=== PATIENT | female | born 1940 | race American Indian/Alaskan Native ===

== ENCOUNTER 2017-07-02 14:04 | Inpatient (IN) | payer MEDICARE, MEDICAID ==
[2017-07-02 14:14] VITALS: BMI 36.4
--- NOTE | 2017-07-02 15:10 | ED PDOC ---
Arrival/HPI - General Chief Complaint: Trauma Time Seen by Provider: 07/02/17 14:36 Historian: Patient, Family - History of Present Illness Narrative History of Present Illness (Text): 07/02/17 15:06 76yr old female with hx of htn, chf, thyroid issues present today with back and leg pain s/p fall. pt unsure of what happened. family states patient went into the bathroom and was found on the floor. pt c/o back pain and right leg pain. denies cp or sob. denies abdominal pain. no n/v/d. family states patient has been acting appropriate. pt denies numbness or weakness in the lower legs. pt denies dizziness. denies headache. pt unsure if she hit her head. unsure of LOC. family states when they found patient in the bathroom she was leaning with her back against the bathtub and right leg under her body. Past Medical History - Provider Review Nursing Documentation Reviewed: Yes - Travel History Have you recently traveled outside [place] w/in the past 3 mons?: No - Cardiac Hx Cardiac Disorders: Yes Hx Congestive Heart Failure: Yes Hx Hypertension: Yes - Pulmonary Hx Respiratory Disorders: No - Neurological Hx Neurological Disorder: No - HEENT Hx HEENT Disorder: No - Renal Hx Renal Disorder: No - Endocrine/Metabolic Hx Endocrine Disorders: Yes Other/Comment: THYROID DISEASE - Hematological/Oncological Hx Blood Disorders: No - Integumentary Hx Dermatological Disorder: No - Musculoskeletal/Rheumatological Hx Musculoskeletal Disorders: No - Gastrointestinal Hx Gastrointestinal Disorders: No - Genitourinary/Gynecological Hx Genitourinary Disorders: No - Psychiatric Hx Psychophysiologic Disorder: No Hx Substance Use: No Family/Social History - Physician Review Nursing Documentation Reviewed: Yes Family/Social History: Unknown Family HX Smoking Status: Never Smoked Hx Alcohol Use: No Hx Substance Use: No Allergies/Home Meds Allergies/Adverse Reactions: Allergies No Known Allergies Allergy (Verified 07/02/17 14:27) Home Medications: Home Meds Medication Instructions Recorded Confirmed Folic Acid 1 mg PO DAILY 07/02/17 07/02/17 Methotrexate 3 tab PO Q7D 07/02/17 07/02/17 Potassium Chloride 20 meq PO DAILY 07/02/17 07/02/17 Pravastatin Sodium [Pravachol] 20 mg PO DAILY 07/02/17 07/02/17 Telmisartan/Hydrochlorothiazid 1 tab PO DAILY 07/02/17 07/02/17 [Micardis Hct 80-25 mg Tablet] Review of Systems - Review of Systems Constitutional: absent: Fevers Respiratory: absent: SOB, Cough Cardiovascular: absent: Chest Pain, Palpitations Gastrointestinal: absent: Abdominal Pain, Nausea, Vomiting Genitourinary Female: absent: Dysuria Musculoskeletal: Arthralgias, Back Pain. absent: Neck Pain Skin: absent: Rash Neurological: absent: Headache, Dizziness Physical Exam Vital Signs Reviewed: Yes Vital Signs Temp Pulse Resp BP Pulse Ox 07/02/17 19:54 97 H 18 96/50 L 95 07/02/17 16:07 102 H 18 118/65 98 07/02/17 14:14 97.6 F 125 H 18 122/66 98 Temperature: Afebrile Blood Pressure: Normal Pulse: Tachycardic Respiratory Rate: Normal Appearance: Positive for: Well-Appearing, Non-Toxic, Comfortable Pain Distress: None Mental Status: Positive for: Alert and Oriented X 3 - Systems Exam Head: Present: Atraumatic Extroacular Muscles: Present: EOMI Conjunctiva: Present: Normal Ears: Present: Normal Mouth: Present: Moist Mucous Membranes Neck: Present: Normal Range of Motion Respiratory/Chest: Present: Clear to Auscultation, Good Air Exchange. No: Respiratory Distress, Accessory Muscle Use Cardiovascular: Present: Regular Rate and Rhythm, Normal S1, S2. No: Murmurs Abdomen: Present: Normal Bowel Sounds. No: Tenderness, Distention, Peritoneal Signs, Rebound, Guarding Back: Present: Normal Inspection. No: CVA Tenderness, Midline Tenderness, Paraspinal Tenderness Upper Extremity: Present: Normal Inspection, Normal ROM Lower Extremity: Present: Normal Inspection, Normal ROM, Capillary Refill < 2 s , Other (+ bilateral lower leg edema. no calf tenderness; pelvis stable; no hip tenderness; minimal ttp over right knee; full rom of knee; sensation intact. ) Neurological: Present: Speech Normal, Normal Sensory Function Skin: Present: Warm, Dry Psychiatric: Present: Alert, Oriented x 3 Medical Decision Making ED Course and Treatment: 07/02/17 15:11 76yr old female with unwitnessed fall. c/o leg pain and back pain. pt tachycardic ekg shows; sinus tachycardia at 115bmp; no st elevations, [id number] pt given tylenol for pain. cxr; no acute infiltrate cbc: wbc; 14.8 cmp:bun; 25 cr; 1.1 trop: wnl bnp: wnl head ct; FINDINGS: HEMORRHAGE: No intracranial hemorrhage. BRAIN: No mass effect or edema. Minimal age appropriate cerebral atrophy. No evidence of acute infarct. VENTRICLES: Unremarkable. No hydrocephalus. CALVARIUM: Unremarkable. PARANASAL SINUSES: Unremarkable as visualized. No significant inflammatory changes. MASTOID AIR CELLS: Unremarkable as visualized. No inflammatory changes. OTHER FINDINGS: None. IMPRESSION: Normal CT of the Head. No intracranial mass, hemorrhage or evidence of acute infarct chest/abd/pelvis CT: FINDINGS: CT CHEST WITHOUT CONTRAST: LUNGS: Clear. No nodule, mass or consolidation. MEDIASTINUM: Enlarged multinodular left lobe of thyroid. Correlate with thyroid ultrasound examination. Normal heart size. No evidence thoracic aortic aneurysm. No dilatation of main pulmonary artery. LYMPH NODES: Unremarkable. PLEURA: Unremarkable. No pneumothorax. No pleural fluid. BONES: Unremarkable. OTHER FINDINGS: None. CT ABDOMEN AND PELVIS: LIVER: Unremarkable. No gross lesion or ductal dilatation. GALLBLADDER AND BILE DUCTS: Status post cholecystectomy. PANCREAS: Evaluation limited by the absence of intravenous contrast. There is an exophytic rounded low-density mass arising from the pancreatic tail measuring approximately 1.5 cm in diameter. There is a suspected 2nd low-density mass in the body of the pancreas measuring approximately 2.3 cm in greatest dimension. Recommend evaluation with contrast-enhanced computed tomography utilizing pancreatic protocol. No pancreatic ductal dilatation. No evidence of pancreatitis. SPLEEN: Unremarkable. ADRENALS: 2.7 cm left adrenal mass measuring 30 E 7 Hounsfield units in attenuation. Nonspecific but statistically most likely represents an adrenal adenoma given its size. KIDNEYS AND URETERS: Exophytic right lower pole renal cortical cyst, 1.8 cm. Left lower pole renal cortical cyst, 2.5 cm. No renal calculus or hydronephrosis. VASCULATURE: Unremarkable. No aortic aneurysm. BOWEL: Unremarkable. No obstruction. No gross mural thickening. APPENDIX: Normal appendix. PERITONEUM: Unremarkable. No free fluid. No free air. LYMPH NODES: Unremarkable. No enlarged lymph nodes. BLADDER: Unremarkable. REPRODUCTIVE: Calcified fibroid in the uterine fundus, 5.6 cm diameter. BONES: No acute fracture. OTHER FINDINGS: None. IMPRESSION: No acute abnormality. Multinodular goiter. Recommend correlation with thyroid ultrasound examination on a nonemergent basis. Two low-density pancreatic masses , possibly cystic. 1.5 cm and 2.3 cm in respective greatest dimension. Recommend further evaluation on a nonemergent basis with multiphasic contrast- enhanced CT. Bilateral renal cortical cysts. 2.7 cm left adrenal mass, likely adrenal adenoma. Calcified uterine fibroid. 07/02/17 16:32 pt was seen and evaluated by dr. branch; lactate 4.6; pt with hx of CHF, takes 80mg of laxis at home; unsure of patient EF. pt can not tolerate large amount of IV fluids. pt given gentle hydration; 07/02/17 19:59 pt with + flu test; tamiflu given; pt reassessment; pts HR is improving; pt bp dropped; BP 88/56, case discussed with dr. mccallum who saw patient at bedside; pt given 250cc bolus of NS; pt bP is 96/50. pt accepted to ICU; impression; syncope, leukocytosis, influenza, sepsis, back pain, admit to ICU - Lab Interpretations Lab Results: 07/02/17 15:15 07/02/17 15:15 Lab Results 07/02/17 18:54: pO2 143 H, VBG pH 7.46 H, VBG pCO2 41.0, VBG HCO3 29.2 H, VBG Total CO2 30.5 H, VBG O2 Sat (Calc) 100.0 H, VBG Base Excess 4.9 H, VBG Potassium 3.4 L, Sodium 145.0, Chloride 108.0 H, Glucose 178 H, Lactate 4.1 H*, FiO2 21.0, Venous Blood Potassium 3.4 L 07/02/17 18:54: Influenza Typ A,B (EIA) Pos for influenza a H 07/02/17 16:11: Urine Color Yellow, Urine Appearance Clear, Urine pH 6.0, Ur Specific [place] 1.015, Urine Protein Trace H, Urine Glucose (UA) Negative, Urine Ketones Negative, Urine Blood Trace-lysed H, Urine Nitrate Negative, Urine Bilirubin Negative, Urine Urobilinogen 0.2, Ur Leukocyte Esterase Negative , Urine RBC 0 - 2, Urine WBC 0 - 2, Ur Epithelial Cells 6 - 8 07/02/17 15:15: PT 11.6, INR 1.02, APTT 18.9 L 07/02/17 15:15: pO2 36, VBG pH 7.37, VBG pCO2 52.0, VBG HCO3 30.1 H, VBG Total CO2 31.7 H, VBG O2 Sat (Calc) 75.3 H, VBG Base Excess 3.6 H, VBG Potassium 3.4 L , Sodium 146.0, Chloride 107.0, Glucose 173 H, Lactate 4.6 H*, FiO2 21.0, Venous Blood Potassium 3.4 L 07/02/17 15:15: WBC 14.8 H, RBC 4.67, Hgb 13.9, Hct 43.2, MCV 92.5, MCH 29.8, MCHC 32.2, RDW 14.6 H, Plt Count 189, MPV 10.2, Gran % 95.2 H, Lymph % (Auto) 3.1 L, Gonzales % (Auto) 1.5, Eos % (Auto) 0.1 L, Baso % (Auto) 0.1, Gran # 14.10 H , Lymph # (Auto) 0.5 L, Gonzales # (Auto) 0.2, Eos # (Auto) 0.0, Baso # (Auto) 0.01 , Neutrophils % (Manual) 89 H, Band Neutrophils % 3 H, Lymphocytes % (Manual) 5 L, Monocytes % (Manual) 3 07/02/17 15:15: Sodium 148, Chloride 105, Potassium 3.6, Carbon Dioxide 30, Anion Gap 17, BUN 25 H, Creatinine 1.0, Est GFR ( Amer) > 60, Est GFR ( Non-Af Amer) 54, Random Glucose 169 H, Calcium 9.8, Total Bilirubin 0.7, AST 47 H, ALT 38, Alkaline Phosphatase 225 H, Lactate Dehydrogenase 798 H, Total Creatine Kinase 43, Troponin I < 0.01, NT-Pro-B Natriuret Pep 264, Total Protein 7.5, Albumin 4.0, Globulin 3.6, Albumin/Globulin Ratio 1.1 - RAD Interpretation Radiology Orders: 07/02/17 14:36 CHEST PORTABLE [RAD] Stat 07/02/17 14:45 HEAD W/O CONTRAST [CT] Stat 07/02/17 14:49 PELVIS ONE VIEW [RAD] Stat 07/02/17 14:50 KNEE W PATELLA RIGHT 3 VIEW [RAD] Stat 07/02/17 16:20 CHEST,ABDOMEN, PELVIS W/O CONT [CT] Stat - Medication Orders Current Medication Orders: Sodium Chloride (Sodium Chloride 0.9%) 500 mls @ 100 mls/hr IV .Q5H TREVER Last Admin: 07/02/17 16:00 Dose: 100 mls/hr eMAR Start Stop Document 07/02/17 16:00 DM (Rec: 07/02/17 16:02 DM [id number]) Intravenous Solution Start Date 07/02/17 Start Time 16:00 Ceftriaxone Sodium (Rocephin 1 Gram Ivpb) 1 gm in 100 mls @ 200 mls/hr IVPB STAT STA PRN Reason: Protocol Stop: 07/02/17 20:00 Last Admin: 07/02/17 19:45 Dose: 200 mls/hr eMAR Start Stop Document 07/02/17 19:45 AD (Rec: 07/02/17 19:45 AD [id number]) Intravenous Solution Start Date 07/02/17 Start Time 19:35 Azithromycin (Zithromax 500mg In Ns) 500 mg in 250 mls @ 167 mls/hr IVPB STAT STA PRN Reason: Protocol Stop: 07/02/17 21:00 Sodium Chloride (Sodium Chloride 0.9%) 250 mls @ 999 mls/hr IV .Q16M STA Stop: 07/02/17 20:03 Last Admin: 07/02/17 19:53 Dose: 999 mls/hr eMAR Start Stop Document 07/02/17 19:53 AD (Rec: 07/02/17 19:53 AD [id number]) Intravenous Solution Start Date 07/02/17 Start Time 19:53 Discontinued Medications Acetaminophen (Tylenol 325mg Tab) 650 mg PO STAT STA Stop: 07/02/17 15:03 Last Admin: 07/02/17 15:25 Dose: 650 mg MAR Pain/Vitals Document 07/02/17 15:25 DM (Rec: 07/02/17 15:25 DM [id number]) Pain Reassessment Is This A Pain ReAssessment? Yes Presence of Pain Presence of Pain Yes Pain Scale Used Pain Scale Used Numeric Location Upper or Lower Lower Pain Location Body Site Back Intensity 6 Scale Used Numeric Oseltamivir Phosphate (Tamiflu Cap) 75 mg PO STAT STA PRN Reason: Protocol Stop: 07/02/17 19:32 Last Admin: 07/02/17 19:45 Dose: 75 mg Disposition/Present on Arrival - Present on Arrival Any Indicators Present on Arrival: No History of DVT/PE: No History of Uncontrolled Diabetes: No Urinary Catheter: No History of Decub. Ulcer: No History Surgical Site Infection Following: None - Disposition Have Diagnosis and Disposition been Completed?: Yes Diagnosis: Sepsis, Influenza, Hypotension, Syncope, Back pain, Leg pain Disposition: HOSPITALIZED Disposition Time: 20:08 Patient Plan: Admission, ICU Patient Problems: Current Active Problems Problem Status Onset Hypotension Acute Influenza Acute Sepsis Acute Condition: CRITICAL Discharge Instructions (ExitCare): Sepsis (ED), Syncope (ED) Referrals: Brett Esquivel MD [Primary Care Provider] - Follow up with primary Forms: [employer] ([place])
[2017-07-02 15:28] LABS: BASO # 0.01 K/mm3 (0.0-2.0); BASO % 0.1 % (0.0-3.0); EOS % 0.1 % (1.5-5.0); GRAN % 95.2 % (50.0-68.0); HEMOGLOBIN 13.9 g/dL (12.0-16.0); LYMPH # 0.5 (1.2-3.4); LYMPH % 3.1 % (22.0-35.0); MEAN CELL VOLUME 92.5 fl (80.0-105.0); MEAN CORPUSCULAR HEMOGLOBIN 29.8 pg (25.0-35.0); MEAN CORPUSCULAR HGB CONC 32.2 g/dl (31.0-37.0); MEAN PLATELET VOLUME 10.2 fl (7.0-11.0); MONO # 0.2 (0.1-0.6); MONO % 1.5 % (1.0-6.0); PLATELET COUNT 189 10^3/uL (120.0-450.0); RBC 4.67 10^6/uL (3.5-6.1); RED CELL DISTRIBUTION WIDTH 14.6 % (11.5-14.5); WHITE BLOOD COUNT 14.8 10^3/ul (4.5-11.0)
[2017-07-02 15:29] LABS: VENOUS BLOOD GAS BASE EXCESS 3.6 mmol/L (0.0-2.0); VENOUS BLOOD GAS PO2 36 mm/Hg (30-55); VENOUS BLOOD PH 7.37 (7.32-7.43)
[2017-07-02 15:40] LABS: ALB/GLOB RATIO 1.1 (1.1-1.8); ALT/SGPT 38 U/L (7-56); AST/SGOT 47 U/L (14-36); BLOOD UREA NITROGEN 25 mg/dL (7-21); CALCIUM 9.8 mg/dL (8.4-10.5); GFR AFRICAN-AMERICAN > 60; GFR NON-AFRICAN AMERICAN 54
[2017-07-02 15:41] LABS: INR 1.02 (0.93-1.08); PARTIAL THROMBOPLASTIN TIME 18.9 Seconds (25.1-36.5); PROTHROMBIN TIME 11.6 SECONDS (9.4-12.5)
[2017-07-02] MEDS ORDERED: Sodium Chloride 0.9% 500 ML IV SCH (15:45)
[2017-07-02 15:51] LABS: B-TYPE NATRIURETIC PEPTIDE 264 pg/mL (0-450); TROPONIN I < 0.01 ng/mL
[2017-07-02 16:02] LABS: BAND 3 % (0-2); LYMPHOCYTE 5 % (22.0-35.0); MONOCYTE 3 % (1.0-6.0); NEUTROPHIL 89 % (50.0-70.0)
--- NOTE | 2017-07-02 16:04 | RAD ---
HISTORY: syncope/fall COMPARISON: No prior. FINDINGS: LUNGS: No active pulmonary disease. PLEURA: No significant pleural effusion identified, no pneumothorax apparent. CARDIOVASCULAR: Normal. OSSEOUS STRUCTURES: No significant abnormalities. VISUALIZED UPPER ABDOMEN: Normal. OTHER FINDINGS: None. IMPRESSION: No active disease.
[2017-07-02 16:17] LABS: URINE BILIRUBIN NEGATIVE (NEGATIVE); URINE BLOOD TRACE-LYSED (NEGATIVE); URINE GLUCOSE (UA) NEGATIVE (NEGATIVE); URINE LEUKOCYTE ESTERASE NEGATIVE Leu/uL (NEGATIVE); URINE PROTEIN TRACE mg/dL (<30 mg/dL); URINE UROBILINOGEN 0.2 E.U./dL (<1 E.U./dL)
[2017-07-02 16:42] LABS: URINE APPEARANCE CLEAR (CLEAR); URINE COLOR YELLOW (YELLOW)
[2017-07-02 16:50] LABS: URINE RBC 0 - 2 /hpf (0-2); URINE WBC 0 - 2 /hpf (0-6)
--- NOTE | 2017-07-02 17:14 | CT ---
PROCEDURE: CT HEAD WITHOUT CONTRAST. HISTORY: fall/syncope COMPARISON: None available. TECHNIQUE: Axial computed tomography images were obtained through the head/brain without intravenous contrast. Radiation dose: Total exam DLP = 1736.07 mGy-cm. This CT exam was performed using one or more of the following dose reduction techniques: Automated exposure control, adjustment of the mA and/or kV according to patient size, and/or use of iterative reconstruction technique. FINDINGS: HEMORRHAGE: No intracranial hemorrhage. BRAIN: No mass effect or edema. Minimal age appropriate cerebral atrophy. No evidence of acute infarct. VENTRICLES: Unremarkable. No hydrocephalus. CALVARIUM: Unremarkable. PARANASAL SINUSES: Unremarkable as visualized. No significant inflammatory changes. MASTOID AIR CELLS: Unremarkable as visualized. No inflammatory changes. OTHER FINDINGS: None. IMPRESSION: Normal CT of the Head. No intracranial mass, hemorrhage or evidence of acute infarct
--- NOTE | 2017-07-02 17:15 | CARD ---
APPROVED REPORT EKG Measurement Heart [id number] <Conclusion> Sinus tachycardia Clockwise Rotation.
--- NOTE | 2017-07-02 18:33 | CT ---
PROCEDURE: CT Chest, Abdomen and Pelvis without intravenous contrast HISTORY: fall/syncope/upper and lower back pain COMPARISON: None. TECHNIQUE: Radiation dose: Total exam DLP = 1543.44 mGy-cm. This CT exam was performed using one or more of the following dose reduction techniques: Automated exposure control, adjustment of the mA and/or kV according to patient size, and/or use of iterative reconstruction technique. FINDINGS: CT CHEST WITHOUT CONTRAST: LUNGS: Clear. No nodule, mass or consolidation. MEDIASTINUM: Enlarged multinodular left lobe of thyroid. Correlate with thyroid ultrasound examination. Normal heart size. No evidence thoracic aortic aneurysm. No dilatation of main pulmonary artery. LYMPH NODES: Unremarkable. PLEURA: Unremarkable. No pneumothorax. No pleural fluid. BONES: Unremarkable. OTHER FINDINGS: None. CT ABDOMEN AND PELVIS: LIVER: Unremarkable. No gross lesion or ductal dilatation. GALLBLADDER AND BILE DUCTS: Status post cholecystectomy. PANCREAS: Evaluation limited by the absence of intravenous contrast. There is an exophytic rounded low-density mass arising from the pancreatic tail measuring approximately 1.5 cm in diameter. There is a suspected 2nd low-density mass in the body of the pancreas measuring approximately 2.3 cm in greatest dimension. Recommend evaluation with contrast-enhanced computed tomography utilizing pancreatic protocol. No pancreatic ductal dilatation. No evidence of pancreatitis. SPLEEN: Unremarkable. ADRENALS: 2.7 cm left adrenal mass measuring 30 E 7 Hounsfield units in attenuation. Nonspecific but statistically most likely represents an adrenal adenoma given its size. KIDNEYS AND URETERS: Exophytic right lower pole renal cortical cyst, 1.8 cm. Left lower pole renal cortical cyst, 2.5 cm. No renal calculus or hydronephrosis. VASCULATURE: Unremarkable. No aortic aneurysm. BOWEL: Unremarkable. No obstruction. No gross mural thickening. APPENDIX: Normal appendix. PERITONEUM: Unremarkable. No free fluid. No free air. LYMPH NODES: Unremarkable. No enlarged lymph nodes. BLADDER: Unremarkable. REPRODUCTIVE: Calcified fibroid in the uterine fundus, 5.6 cm diameter. BONES: No acute fracture. OTHER FINDINGS: None. IMPRESSION: No acute abnormality. Multinodular goiter. Recommend correlation with thyroid ultrasound examination on a nonemergent basis. Two low-density pancreatic masses, possibly cystic. 1.5 cm and 2.3 cm in respective greatest dimension. Recommend further evaluation on a nonemergent basis with multiphasic contrast-enhanced CT. Bilateral renal cortical cysts. 2.7 cm left adrenal mass, likely adrenal adenoma. Calcified uterine fibroid.
[2017-07-02 19:04] LABS: VENOUS BLOOD GAS BASE EXCESS 4.9 mmol/L (0.0-2.0); VENOUS BLOOD GAS PO2 143 mm/Hg (30-55); VENOUS BLOOD PH 7.46 (7.32-7.43)
--- NOTE | 2017-07-02 19:10 | RAD ---
PROCEDURE: Radiographs of the pelvis. HISTORY: fall COMPARISON: None. FINDINGS: BONES: Pelvic Bones: No definitive displaced fracture of the pelvic ring is appreciated however the pelvis is obscured by overlying bowel at the upper iliac bones and a low large calcified lesion at the left paracentral pelvic soft tissues likely representing a calcified fibroid obscures the inferior left sacrum. No definite displaced fracture is appreciated and the pubic symphysis appears intact. Hips: No definitive subluxation or dislocation. JOINTS: Sacroiliac Joints: Advanced degenerative changes seen at the right greater than left sacroiliac joints Pubic Symphysis: Moderate to severe degenerative changes seen the bilateral hip joints symmetrically. OTHER FINDINGS: Incidental note is made of prominent fecal material at the right hemicolon and some dilated small-bowel loops with left lower quadrant. Clinically correlate for potential ileus or small bowel obstructive process. IMPRESSION: No definitive fractures appreciated displaced however there advanced degenerative change seen the bilateral sacroiliac and hip joints. Bowel obscures upper sacral ring with likely calcified fibroid obscuring the left sacrum inferiorly. Incidentally noted are dilated loops of small bowel in the left flank/lower quadrant. Clinically correlate for potential ileus with bowel obstruction less likely but not completely excluded. Prominent retained fecal material right hemicolon.
--- NOTE | 2017-07-02 19:11 | RAD ---
PROCEDURE: Right Knee Radiographs. HISTORY: knee pain COMPARISON: None. FINDINGS: BONES: Extensive osteopenia suggests likely advanced osteoporosis. No displaced fracture identified. No destructive bony lesion evident. JOINTS: Degenerative joint space narrowing, cortical sclerosis and osteophyte formation are identified at the patellofemoral, medial and lateral femorotibial compartments compatible degenerative joint disease. JOINT EFFUSION: None. OTHER FINDINGS: None. IMPRESSION: No acute displaced fracture. No dislocation. Advanced osteopenia suggests osteoporosis. Moderate to severe degenerative joint disease, tricompartmental.
[2017-07-02] MEDS ORDERED: cefTRIAXone 1 gm 1 GM/100 ML BAG IVPB STA (19:31)
[2017-07-02] MEDS ORDERED: Azithromycin 500MG/NS 250ml 500 MG/250 ML BAG IVPB STA (19:31)
[2017-07-02] MEDS ORDERED: Sodium Chloride 0.9% 250 ML IV STA (19:48)
[2017-07-02] MEDS ORDERED: Sodium Chloride 0.9% 1,000 ML IV SCH (20:45)
[2017-07-02] MEDS ORDERED: Sodium Chloride 0.9% 250 ML IV SCH (20:45)
--- NOTE | 2017-07-02 22:27 | CP.PCM.HP ---
History of Present Illness - History of Present Illness History of Present Illness: PGY-2 H&P for hospitalist service 76 yo female with PMH of HTN, CHF presents to ED after fall with leg and back pain. Patient is a poor historian and does not recall how she fell. Patient states that she was in the bathroom and then woke up on the floor. She is unsure if she had any trauma to her head. Family at bedside states she was found in the bathroom and on the floor. Patient is complaining of back pain and leg pain. She denies chest pain or sob, headache, dizziness, vision changes, abdominal pain, n/v. Family states patient has been acting appropriate. Patient denies any recent illnesses. She denies any previous falls or loss of consciousness. PMH: CHF, HTN, possible dementia PSH: hernia repair social history: deneis smoking, alcohol use, illicit drug use, lives with daughter allergy: NKDA home meds: reviewed and updated Present on Admission - Present on Admission Any Indicators Present on Admission: No Review of Systems - Review of Systems All systems: reviewed and no additional remarkable complaints except - Constitutional Constitutional: absent: Chills, Fever - EENT Eyes: absent: Blurred Vision, Change in Vision Nose/Mouth/Throat: absent: Nasal Congestion, Nasal Discharge, Dry Mouth, Sore Throat - Cardiovascular Cardiovascular: Syncope. absent: Chest Pain, Diaphoresis, Dyspnea, Lightheadedness, Palpitations - Respiratory Respiratory: absent: Cough, Dyspnea, Hemoptysis - Gastrointestinal Gastrointestinal: absent: Abdominal Pain, Constipation, Diarrhea, Nausea, Vomiting - Genitourinary Genitourinary: absent: Difficulty Urinating, Dysuria, Flank Pain, Hematuria - Musculoskeletal Musculoskeletal: Arthralgias, Back Pain, Myalgias. absent: Numbness - Integumentary Integumentary: absent: Pruritus, Rash, Skin Ulcer, Swelling, Wounds - Neurological Neurological: Syncope. absent: Confusion, Dizziness, Weakness - Hematologic/Lymphatic Hematologic: absent: Easy Bleeding, Easy Bruising Past Patient History - Past Social History Smoking Status: Never Smoked - CARDIAC Hx Cardiac Disorders: Yes Hx Congestive Heart Failure: Yes Hx Hypertension: Yes - PULMONARY Hx Respiratory Disorders: No - NEUROLOGICAL Hx Neurological Disorder: No - HEENT Hx HEENT Problems: No - RENAL Hx Chronic Kidney Disease: No - ENDOCRINE/METABOLIC Hx Endocrine Disorders: Yes Other/Comment: THYROID DISEASE - HEMATOLOGICAL/ONCOLOGICAL Hx Blood Disorders: No - INTEGUMENTARY Hx Dermatological Problems: No - MUSCULOSKELETAL/RHEUMATOLOGICAL Hx Musculoskeletal Disorders: No - GASTROINTESTINAL Hx Gastrointestinal Disorders: No - GENITOURINARY/GYNECOLOGICAL Hx Genitourinary Disorders: No - PSYCHIATRIC Hx Psychophysiologic Disorder: No Hx Substance Use: No - SURGICAL HISTORY Hx Surgeries: No Meds Allergies/Adverse Reactions: Allergies Allergy/AdvReac Type Severity Reaction Status Date / Time No Known Allergies Allergy Verified 07/02/17 14:27 Physical Exam - Constitutional Appears: Well, No Acute Distress - Head Exam Head Exam: ATRAUMATIC, NORMAL INSPECTION, NORMOCEPHALIC - Eye Exam Eye Exam: EOMI - ENT Exam ENT Exam: Mucous Membranes Moist - Respiratory Exam Respiratory Exam: Clear to Auscultation Bilateral, NORMAL BREATHING PATTERN. absent: Rales, Rhonchi, Wheezes, Respiratory Distress - Cardiovascular Exam Cardiovascular Exam: REGULAR RHYTHM, +S1, +S2. absent: Tachycardia, Systolic Murmur - GI/Abdominal Exam GI & Abdominal Exam: Normal Bowel Sounds, Soft. absent: Distended, Firm, Guarding, Tenderness - Extremities Exam Extremities exam: Positive for: normal inspection. Negative for: pedal edema, tenderness - Neurological Exam Neurological exam: Alert, Oriented x3 - Skin Skin Exam: Dry, Intact, Normal Color, Warm Results - Vital Signs Recent Vital Signs: Last Vital Signs Temp 97.6 F 07/02/17 14:14 Pulse 92 H 07/02/17 21:29 Resp 18 07/02/17 21:29 BP 106/57 L 07/02/17 21:29 Pulse Ox 95 07/02/17 21:29 - Labs Result Diagrams: 07/03/17 06:20 07/03/17 06:20 Labs: Laboratory Results - last 24 hr 07/02/17 07/02/17 07/02/17 15:15 15:15 15:15 WBC 14.8 H RBC 4.67 Hgb 13.9 Hct 43.2 MCV 92.5 MCH 29.8 MCHC 32.2 RDW 14.6 H Plt Count 189 MPV 10.2 Gran % 95.2 H Lymph % (Auto) 3.1 L [place] % (Auto) 1.5 Eos % (Auto) 0.1 L Baso % (Auto) 0.1 Gran # 14.10 H Lymph # (Auto) 0.5 L [place] # (Auto) 0.2 Eos # (Auto) 0.0 Baso # (Auto) 0.01 Neutrophils % (Manual) 89 H Band Neutrophils % 3 H Lymphocytes % (Manual) 5 L Monocytes % (Manual) 3 PT INR APTT pO2 36 VBG pH 7.37 VBG pCO2 52.0 VBG HCO3 30.1 H VBG Total CO2 31.7 H VBG O2 Sat (Calc) 75.3 H VBG Base Excess 3.6 H VBG Potassium 3.4 L Sodium 148 146.0 Chloride 105 107.0 Glucose 173 H Lactate 4.6 H* FiO2 21.0 Potassium 3.6 Carbon Dioxide 30 Anion Gap 17 BUN 25 H Creatinine 1.0 Est GFR ( Amer) > 60 Est GFR (Non-Af Amer) 54 Random Glucose 169 H Calcium 9.8 Total Bilirubin 0.7 AST 47 H ALT 38 Alkaline Phosphatase 225 H Lactate Dehydrogenase 798 H Total Creatine Kinase 43 Troponin I < 0.01 NT-Pro-B Natriuret Pep 264 Total Protein 7.5 Albumin 4.0 Globulin 3.6 Albumin/Globulin Ratio 1.1 Venous Blood Potassium 3.4 L Urine Color Urine Appearance Urine pH Ur Specific Deal Urine Protein Urine Glucose (UA) Urine Ketones Urine Blood Urine Nitrate Urine Bilirubin Urine Urobilinogen Ur Leukocyte Esterase Urine RBC Urine WBC Ur Epithelial Cells Influenza Typ A,B (EIA) 07/02/17 07/02/17 07/02/17 15:15 16:11 18:54 WBC RBC Hgb Hct MCV MCH MCHC RDW Plt Count MPV Gran % Lymph % (Auto) [place] % (Auto) Eos % (Auto) Baso % (Auto) Gran # Lymph # (Auto) [place] # (Auto) Eos # (Auto) Baso # (Auto) Neutrophils % (Manual) Band Neutrophils % Lymphocytes % (Manual) Monocytes % (Manual) PT 11.6 INR 1.02 APTT 18.9 L pO2 VBG pH VBG pCO2 VBG HCO3 VBG Total CO2 VBG O2 Sat (Calc) VBG Base Excess VBG Potassium Sodium Chloride Glucose Lactate FiO2 Potassium Carbon Dioxide Anion Gap BUN Creatinine Est GFR ( Amer) Est GFR (Non-Af Amer) Random Glucose Calcium Total Bilirubin AST ALT Alkaline Phosphatase Lactate Dehydrogenase Total Creatine Kinase Troponin I NT-Pro-B Natriuret Pep Total Protein Albumin Globulin Albumin/Globulin Ratio Venous Blood Potassium Urine Color Yellow Urine Appearance Clear Urine pH 6.0 Ur Specific Deal 1.015 Urine Protein Trace H Urine Glucose (UA) Negative Urine Ketones Negative Urine Blood Trace-lysed H Urine Nitrate Negative Urine Bilirubin Negative Urine Urobilinogen 0.2 Ur Leukocyte Esterase Negative Urine RBC 0 - 2 Urine WBC 0 - 2 Ur Epithelial Cells 6 - 8 Influenza Typ A,B (EIA) Pos for influenza a H 07/02/17 18:54 WBC RBC Hgb Hct MCV MCH MCHC RDW Plt Count MPV Gran % Lymph % (Auto) [place] % (Auto) Eos % (Auto) Baso % (Auto) Gran # Lymph # (Auto) [place] # (Auto) Eos # (Auto) Baso # (Auto) Neutrophils % (Manual) Band Neutrophils % Lymphocytes % (Manual) Monocytes % (Manual) PT INR APTT pO2 143 H VBG pH 7.46 H VBG pCO2 41.0 VBG HCO3 29.2 H VBG Total CO2 30.5 H VBG O2 Sat (Calc) 100.0 H VBG Base Excess 4.9 H VBG Potassium 3.4 L Sodium 145.0 Chloride 108.0 H Glucose 178 H Lactate 4.1 H* FiO2 21.0 Potassium Carbon Dioxide Anion Gap BUN Creatinine Est GFR ( Amer) Est GFR (Non-Af Amer) Random Glucose Calcium Total Bilirubin AST ALT Alkaline Phosphatase Lactate Dehydrogenase Total Creatine Kinase Troponin I NT-Pro-B Natriuret Pep Total Protein Albumin Globulin Albumin/Globulin Ratio Venous Blood Potassium 3.4 L Urine Color Urine Appearance Urine pH Ur Specific Deal Urine Protein Urine Glucose (UA) Urine Ketones Urine Blood Urine Nitrate Urine Bilirubin Urine Urobilinogen Ur Leukocyte Esterase Urine RBC Urine WBC Ur Epithelial Cells Influenza Typ A,B (EIA) Assessment & Plan - Assessment and Plan (Free Text) Assessment: 76 yo female with PMH of HTN, CHF presents to ED after fall with leg and back pain found to have sepsis. Plan: 1. sepsis - lactate 4.1 in ED, afebrile, Leukocytosis - patient hypotensive in ED - will continue IVF, patient has history of CHF will continue to monitor - continue ceftriaxone, and azithromycin - hold BP meds - vitals monitored q 1 hour - CT abd/pel/chest: No acute abnormality. Multinodular goiter. Two low-density pancreatic masses, 1.5 cm and 2.3 cm. Bilateral renal cortical cysts. 2.7 cm left adrenal mass. - UA negative - blood and urine cultures ordered - repeat VBG shock panel - ID consulted 2. flu positive - influenza positive - started on tamiflu - respiratory precautions 3. syncope with fall - head ct normal - xray hip- no fractures, advance degenerative disease - knee xray- severe degenerative disease, no fractures - Tylenol prn for pain 4. history of CHF - Pro BNP low, negative trops x1 - no previous echo, will consider ordering echo 5. history of HTN - hold home HN medication, patient was hypotensive in ED - continue to monitor ppx - GI- protonix - DVT- Lovenox
--- NOTE | 2017-07-02 22:46 | PCM.SEPTIC ---
Sepsis Progress Note - Reassessment Type Date of Evaluation: 07/02/17 Time of Evaluation: 22:45 Reassessment Type: Non-invasive reassessment - Non Invasive Reassessment Were the most recent vital sign reviewed: Yes Vital Sign (Latest): Temp Pulse Resp BP Pulse Ox 97.6 F 92 H 18 106/57 L 95 07/02/17 14:14 07/02/17 21:29 07/02/17 21:29 07/02/17 21:29 07/02/17 21:29 Cardiovascular: Yes: Regular Rate, Rhythm, Chest Non Tender. No: Edema, Murmur Respiratory: Yes: Normal Breath Sounds. No: Decreased Breath Sounds, Accessory Muscle Use, Crackles, Rales, Rhonchi, Stridor, Wheezing, Respiratory Distress Capillary Refill: Normal (Less than 2 sec) Skin: Normal Color, Warm, Dry
[2017-07-03 02:30] LABS: VENOUS BLOOD GAS BASE EXCESS 2.7 mmol/L (0.0-2.0); VENOUS BLOOD GAS PO2 48 mm/Hg (30-55); VENOUS BLOOD PH 7.37 (7.32-7.43)
[2017-07-03 06:50] LABS: BASO # 0.03 K/mm3 (0.0-2.0); BASO % 0.1 % (0.0-3.0); EOS # 0.1 (0.0-0.7); EOS % 0.2 % (1.5-5.0); GRAN # 20.11 (1.4-6.5); GRAN % 89.4 % (50.0-68.0); HEMOGLOBIN 12.5 g/dL (12.0-16.0); LYMPH # 1.2 (1.2-3.4); LYMPH % 5.1 % (22.0-35.0); MEAN CELL VOLUME 92.3 fl (80.0-105.0); MEAN CORPUSCULAR HEMOGLOBIN 29.1 pg (25.0-35.0); MEAN CORPUSCULAR HGB CONC 31.5 g/dl (31.0-37.0); MEAN PLATELET VOLUME 10.6 fl (7.0-11.0); MONO # 1.2 (0.1-0.6); MONO % 5.2 % (1.0-6.0); RBC 4.3 10^6/uL (3.5-6.1); VENOUS BLOOD GAS BASE EXCESS 2.9 mmol/L (0.0-2.0); VENOUS BLOOD GAS PO2 57 mm/Hg (30-55); VENOUS BLOOD PH 7.35 (7.32-7.43); WHITE BLOOD COUNT 22.5 10^3/ul (4.5-11.0)
[2017-07-03 07:17] LABS: ALBUMIN 3.4 g/dL (3.0-4.8); ALT/SGPT 37 U/L (7-56); AST/SGOT 53 U/L (14-36); BLOOD UREA NITROGEN 27 mg/dL (7-21); CALCIUM 8.9 mg/dL (8.4-10.5); GFR AFRICAN-AMERICAN > 60; GFR NON-AFRICAN AMERICAN 54
[2017-07-03] MEDS ORDERED: Sodium Chloride 0.9% 1,000 ML IV SCH (07:24)
[2017-07-03] MEDS: Pantoprazole 40 mg EC Tab PO SCH (07:49)
[2017-07-03] MEDS ORDERED: Potassium Chloride 20 mEq ER Tab PO STA (07:54)
--- NOTE | 2017-07-03 09:04 | CP.PCM.CON ---
<HerreraDragan - Last Filed: 07/03/17 10:53> History of Present Illness - History of Present Illness History of Present Illness: 76 yo female with PMH of HTN, CHF presentED to ED after fall with leg and back pain. Patient is a poor historian and does not recall how she fell. Patient states that she was in the bathroom and then woke up on the floor. She was unsure if she had any trauma to her head. Family at bedside stated she was found in the bathroom and on the floor. Patient was complaining of back pain and leg pain. She denied chest pain or sob, headache, dizziness, vision changes , abdominal pain, n/v. Family states patient has been acting appropriate. Patient denied any recent illnesses. She denies any previous falls or loss of consciousness. PMH: CHF, HTN, possible ungiagnosed dementia PSH: hernia repair social history: denies smoking, alcohol use, illicit drug use, lives with daughter allergy: NKDA home meds: SEE MAR Review of Systems - Constitutional Constitutional: absent: Chills, Fever - Cardiovascular Cardiovascular: absent: Chest Pain, Chest Pain at Rest, Dyspnea - Respiratory Respiratory: absent: Cough, Dyspnea - Gastrointestinal Gastrointestinal: absent: Abdominal Pain, Constipation, Cramping, Diarrhea, Nausea, Vomiting - Genitourinary Genitourinary: absent: Change in Urinary Stream, Difficulty Urinating - Musculoskeletal Musculoskeletal: Arthralgias - Neurological Neurological: absent: Dizziness, Numbness, Headaches, Tingling Past Patient History - Past Social History Smoking Status: Never Smoked - CARDIAC Hx Cardiac Disorders: Yes Hx Congestive Heart Failure: Yes Hx Hypertension: Yes - PULMONARY Hx Respiratory Disorders: No - NEUROLOGICAL Hx Neurological Disorder: No - HEENT Hx HEENT Problems: No - RENAL Hx Chronic Kidney Disease: No - ENDOCRINE/METABOLIC Hx Endocrine Disorders: Yes Other/Comment: THYROID DISEASE - HEMATOLOGICAL/ONCOLOGICAL Hx Blood Disorders: No - INTEGUMENTARY Hx Dermatological Problems: No - MUSCULOSKELETAL/RHEUMATOLOGICAL Hx Musculoskeletal Disorders: No - GASTROINTESTINAL Hx Gastrointestinal Disorders: No - GENITOURINARY/GYNECOLOGICAL Hx Genitourinary Disorders: No - PSYCHIATRIC Hx Psychophysiologic Disorder: No Hx Substance Use: No - SURGICAL HISTORY Hx Surgeries: No Meds Allergies/Adverse Reactions: Allergies Allergy/AdvReac Type Severity Reaction Status Date / Time No Known Allergies Allergy Verified 07/02/17 14:27 - Medications Medications: Current Medications Acetaminophen (Tylenol 325mg Tab) 650 mg PO Q6 PRN PRN Reason: Pain, moderate (4-7) Last Admin: 07/02/17 22:51 Dose: 650 mg Aspirin (Ecotrin) 81 mg PO DAILY [facility] Atorvastatin Calcium (Lipitor) 20 mg PO DIN [facility] Enoxaparin Sodium (Lovenox) 40 mg SC DAILY [facility] PRN Reason: Protocol Ceftriaxone Sodium (Rocephin 1 Gram Ivpb) 1 gm in 100 mls @ 100 mls/hr IVPB DAILY [facility] PRN Reason: Protocol Azithromycin (Zithromax 500mg In Ns) 500 mg in 250 mls @ 167 mls/hr IVPB DAILY [facility] PRN Reason: Protocol Oseltamivir Phosphate (Tamiflu Cap) 75 mg PO BID [facility] PRN Reason: Protocol Stop: 07/08/17 07:32 Pantoprazole Sodium (Protonix Ec Tab) 40 mg PO 0600 [facility] Last Admin: 07/03/17 07:49 Dose: 40 mg Physical Exam - Constitutional Appears: Non-toxic - Head Exam Head Exam: ATRAUMATIC, NORMAL INSPECTION, NORMOCEPHALIC - Eye Exam Eye Exam: EOMI, Normal appearance - ENT Exam ENT Exam: Mucous Membranes Moist - Respiratory Exam Respiratory Exam: Clear to Auscultation Bilateral, NORMAL BREATHING PATTERN - Cardiovascular Exam Cardiovascular Exam: REGULAR RHYTHM, +S1, +S2 - GI/Abdominal Exam GI & Abdominal Exam: Distended - Extremities Exam Extremities exam: Positive for: pedal edema - Neurological Exam Neurological exam: Alert Additional comments: orented only to self - Skin Skin Exam: Normal Color, Warm Results - Vital Signs Recent Vital Signs: Last Vital Signs Temp 98.2 F 07/03/17 08:00 Pulse 89 07/03/17 08:30 Resp 27 H 07/03/17 08:30 BP 144/70 07/03/17 08:00 Pulse Ox 97 07/03/17 08:30 - Labs Result Diagrams: 07/03/17 06:20 07/03/17 06:20 Labs: Laboratory Results - last 24 hr 07/03/17 07/03/17 07/03/17 02:10 06:20 06:20 WBC 22.5 H D RBC 4.30 Hgb 12.5 Hct 39.7 MCV 92.3 MCH 29.1 MCHC 31.5 RDW 15.0 H Plt Count 171 MPV 10.6 Gran % 89.4 H Lymph % (Auto) 5.1 L [place] % (Auto) 5.2 Eos % (Auto) 0.2 L Baso % (Auto) 0.1 Gran # 20.11 H Lymph # (Auto) 1.2 [place] # (Auto) 1.2 H Eos # (Auto) 0.1 Baso # (Auto) 0.03 pO2 48 VBG pH 7.37 VBG pCO2 50.0 VBG HCO3 28.9 H VBG Total CO2 30.4 H VBG O2 Sat (Calc) 88.4 H VBG Base Excess 2.7 H VBG Potassium 3.5 L Sodium 145.0 147 Chloride 109.0 H 108 H Glucose 176 H Lactate 3.3 H FiO2 21.0 Potassium 3.7 Carbon Dioxide 28 Anion Gap 15 BUN 27 H Creatinine 1.0 Est GFR ( Amer) > 60 Est GFR (Non-Af Amer) 54 Random Glucose 148 H Lactic Acid Calcium 8.9 Total Bilirubin 0.5 AST 53 H ALT 37 Alkaline Phosphatase 188 H Troponin I Total Protein 6.7 Albumin 3.4 Globulin 3.3 Albumin/Globulin Ratio 1.0 L Venous Blood Potassium 3.5 L 07/03/17 07/03/17 07/03/17 06:20 08:10 08:10 WBC RBC Hgb Hct MCV MCH MCHC RDW Plt Count MPV Gran % Lymph % (Auto) [place] % (Auto) Eos % (Auto) Baso % (Auto) Gran # Lymph # (Auto) [place] # (Auto) Eos # (Auto) Baso # (Auto) pO2 57 H VBG pH 7.35 VBG pCO2 54.0 VBG HCO3 29.8 H VBG Total CO2 31.5 H VBG O2 Sat (Calc) 93.2 H VBG Base Excess 2.9 H VBG Potassium 3.5 L Sodium 144.0 Chloride 109.0 H Glucose 153 H Lactate 2.6 H FiO2 21.0 Potassium Carbon Dioxide Anion Gap BUN Creatinine Est GFR ( Amer) Est GFR (Non-Af Amer) Random Glucose Lactic Acid 1.8 Calcium Total Bilirubin AST ALT Alkaline Phosphatase Troponin I 0.05 D Total Protein Albumin Globulin Albumin/Globulin Ratio Venous Blood Potassium 3.5 L Assessment & Plan - Assessment and Plan (Free Text) Assessment: 76 yo female with PMH of HTN, CHF presents to ED after fall with leg and back pain found to have sepsis. Plan: 1. Sepsis likely secondary to flu - lactate 4.1 in ED, afebrile, Leukocytosis, repeat lactate 1.8 from this AM - patient BP stable currently - D/C fluids - continue ceftriaxone, and azithromycin - holding BP meds for earlier hypotension on admission - vitals monitored q 1 hour - CT abd/pel/chest: No acute abnormality. Multinodular goiter. Two low-density pancreatic masses, 1.5 cm and 2.3 cm. Bilateral renal cortical cysts. 2.7 cm left adrenal mass. - UA negative - blood and urine cultures pending - ID consulted, follow recs 2. Flu positive - influenza positive - started on tamiflu - respiratory precautions 3. Syncope with fall - head ct normal - xray hip- no fractures, advance degenerative disease - knee xray- severe degenerative disease, no fractures - Tylenol prn for pain 4. History of CHF - Pro BNP low, initial trop .01, .05, will trend once more - echo pending 5. HTN-chronic - hold home HN medication, patient was hypotensive in ED - continue to monitor ppx - GI- protonix - DVT- Lovenox <Les Tanner - Last Filed: 07/03/17 12:15> Meds - Medications Medications: Current Medications Acetaminophen (Tylenol 325mg Tab) 650 mg PO Q6 PRN PRN Reason: Pain, moderate (4-7) Last Admin: 07/02/17 22:51 Dose: 650 mg Aspirin (Ecotrin) 81 mg PO DAILY [facility] Last Admin: 07/03/17 09:14 Dose: 81 mg Atorvastatin Calcium (Lipitor) 20 mg PO DIN [facility] Enoxaparin Sodium (Lovenox) 40 mg SC DAILY [facility] PRN Reason: Protocol Last Admin: 07/03/17 09:14 Dose: 40 mg Ceftriaxone Sodium (Rocephin 1 Gram Ivpb) 1 gm in 100 mls @ 100 mls/hr IVPB DAILY [facility] PRN Reason: Protocol Last Admin: 07/03/17 09:15 Dose: 100 mls/hr Doxycycline Hyclate 100 mg/ (Sodium Chloride) 100 mls @ 100 mls/hr IVPB Q12 [facility] PRN Reason: Protocol Last Admin: 07/03/17 11:09 Dose: 100 mls/hr Oseltamivir Phosphate (Tamiflu Cap) 75 mg PO BID [facility] PRN Reason: Protocol Stop: 07/08/17 07:32 Last Admin: 07/03/17 09:14 Dose: 75 mg Pantoprazole Sodium (Protonix Ec Tab) 40 mg PO 0600 [facility] Last Admin: 07/03/17 07:49 Dose: 40 mg Results - Vital Signs Recent Vital Signs: Last Vital Signs Temp 98.2 F 07/03/17 08:00 Pulse 80 07/03/17 09:40 Resp 18 07/03/17 09:40 BP 144/78 07/03/17 09:00 Pulse Ox 97 07/03/17 09:40 - Labs Result Diagrams: 07/03/17 06:20 07/03/17 06:20 Labs: Laboratory Results - last 24 hr 07/03/17 07/03/17 07/03/17 02:10 06:20 06:20 WBC 22.5 H D RBC 4.30 Hgb 12.5 Hct 39.7 MCV 92.3 MCH 29.1 MCHC 31.5 RDW 15.0 H Plt Count 171 MPV 10.6 Gran % 89.4 H Lymph % (Auto) 5.1 L [place] % (Auto) 5.2 Eos % (Auto) 0.2 L Baso % (Auto) 0.1 Gran # 20.11 H Lymph # (Auto) 1.2 [place] # (Auto) 1.2 H Eos # (Auto) 0.1 Baso # (Auto) 0.03 pO2 48 VBG pH 7.37 VBG pCO2 50.0 VBG HCO3 28.9 H VBG Total CO2 30.4 H VBG O2 Sat (Calc) 88.4 H VBG Base Excess 2.7 H VBG Potassium 3.5 L Sodium 145.0 147 Chloride 109.0 H 108 H Glucose 176 H Lactate 3.3 H FiO2 21.0 Potassium 3.7 Carbon Dioxide 28 Anion Gap 15 BUN 27 H Creatinine 1.0 Est GFR ( Amer) > 60 Est GFR (Non-Af Amer) 54 Random Glucose 148 H Lactic Acid Calcium 8.9 Total Bilirubin 0.5 AST 53 H ALT 37 Alkaline Phosphatase 188 H Troponin I Total Protein 6.7 Albumin 3.4 Globulin 3.3 Albumin/Globulin Ratio 1.0 L Venous Blood Potassium 3.5 L 07/03/17 07/03/17 07/03/17 06:20 08:10 08:10 WBC RBC Hgb Hct MCV MCH MCHC RDW Plt Count MPV Gran % Lymph % (Auto) [place] % (Auto) Eos % (Auto) Baso % (Auto) Gran # Lymph # (Auto) [place] # (Auto) Eos # (Auto) Baso # (Auto) pO2 57 H VBG pH 7.35 VBG pCO2 54.0 VBG HCO3 29.8 H VBG Total CO2 31.5 H VBG O2 Sat (Calc) 93.2 H VBG Base Excess 2.9 H VBG Potassium 3.5 L Sodium 144.0 Chloride 109.0 H Glucose 153 H Lactate 2.6 H FiO2 21.0 Potassium Carbon Dioxide Anion Gap BUN Creatinine Est GFR ( Amer) Est GFR (Non-Af Amer) Random Glucose Lactic Acid 1.8 Calcium Total Bilirubin AST ALT Alkaline Phosphatase Troponin I 0.05 D Total Protein Albumin Globulin Albumin/Globulin Ratio Venous Blood Potassium 3.5 L Attending/Attestation - Attestation I have personally seen and examined this patient.: Yes I have fully participated in the care of the patient.: Yes I have reviewed all pertinent clinical information: Yes Notes (Text): 07/03/17 12:10 The patient was seen and examined at the bedside. Patient care was discussed with resident and ICU team in MDR rounds. Medical records, lab studies, and imaging were reviewed and management issues were discussed and formulated. Agree with above treatment plans as outlined in 's note with addition of the following: Sepsis \ Influenza Positive \ Hypotension \ CHF -hemodynamic monitoring to maintain MAP>65; pt initially hypotensive on admission but subsequently improved -continue ASA and statin; f\u Echo -o2 supplementation to maintain Spo2 >90 Pao2>60; comfortable on NC -CXR reviewed -continue Abx and Tamiflu; consider ID team eval; f\u cultures -f\u Bun\Cr and U\o; monitor and replace e-lites -PO diet and aspiration precautions -PT\OT f\u -CT C\A\P shows pancreatic mass, goiter, left adrenal mass among other findings ; consider GI , surgery and endocrine eval for evaluation of these findings and further work up -DVT \ PUD prophylaxis CCM f\u time 30mins
[2017-07-03] MEDS: Enoxaparin 40 mg Syringe SC SCH (09:14)
[2017-07-03] MEDS: Azithromycin 500MG/NS 250ml 500 MG/250 ML BAG IVPB SCH ×2 (09:15→10:55)
[2017-07-03] MEDS: cefTRIAXone 1 gm 1 GM/100 ML BAG IVPB SCH (09:15)
--- NOTE | 2017-07-03 10:41 | CP.PCM.CON ---
History of Present Illness - History of Present Illness History of Present Illness: 76 year old female with PMH of HTN, chronic CHF, obesity with BMI 37, history of thyroid disease came in to [facility] [place] after she was noted to have fallen in the bathroom and had pain on her arm and back. She does not recall if she lost consciousness but she felt weak prior to the fall, had some body aches, had some chills but denies fever, no headache, no sore throat, no rhinorrhea, no cough, no nausea or vomiting, no abdominal pain, no diarrhea, no dysuria. In the ED, she was noted have one episode of fluid responsive low BP and the patient also has leukocytosis. Infectious Diseases consult is requested to further evaluate and manage. Review of Systems - Review of Systems All systems: reviewed and no additional remarkable complaints except (as per HPI ) Past Patient History - Past Social History Smoking Status: Never Smoked - CARDIAC Hx Cardiac Disorders: Yes Hx Congestive Heart Failure: Yes Hx Hypertension: Yes - PULMONARY Hx Respiratory Disorders: No - NEUROLOGICAL Hx Neurological Disorder: No - HEENT Hx HEENT Problems: No - RENAL Hx Chronic Kidney Disease: No - ENDOCRINE/METABOLIC Hx Endocrine Disorders: Yes Other/Comment: THYROID DISEASE - HEMATOLOGICAL/ONCOLOGICAL Hx Blood Disorders: No - INTEGUMENTARY Hx Dermatological Problems: No - MUSCULOSKELETAL/RHEUMATOLOGICAL Hx Musculoskeletal Disorders: No - GASTROINTESTINAL Hx Gastrointestinal Disorders: No - GENITOURINARY/GYNECOLOGICAL Hx Genitourinary Disorders: No - PSYCHIATRIC Hx Psychophysiologic Disorder: No Hx Substance Use: No - SURGICAL HISTORY Hx Surgeries: No Meds Allergies/Adverse Reactions: Allergies Allergy/AdvReac Type Severity Reaction Status Date / Time No Known Allergies Allergy Verified 07/02/17 14:27 - Medications Medications: Current Medications Acetaminophen (Tylenol 325mg Tab) 650 mg PO Q6 PRN PRN Reason: Pain, moderate (4-7) Last Admin: 07/02/17 22:51 Dose: 650 mg Aspirin (Ecotrin) 81 mg PO DAILY [facility] Atorvastatin Calcium (Lipitor) 20 mg PO DIN [facility] Enoxaparin Sodium (Lovenox) 40 mg SC DAILY [facility] PRN Reason: Protocol Ceftriaxone Sodium (Rocephin 1 Gram Ivpb) 1 gm in 100 mls @ 100 mls/hr IVPB DAILY [facility] PRN Reason: Protocol Sodium Chloride (Sodium Chloride 0.9%) 1,000 mls @ 100 mls/hr IV .Q10H [facility] Last Admin: 07/02/17 21:28 Dose: 100 mls/hr Azithromycin (Zithromax 500mg In Ns) 500 mg in 250 mls @ 167 mls/hr IVPB DAILY [facility] PRN Reason: Protocol Oseltamivir Phosphate (Tamiflu) 30 mg PO BID [facility] PRN Reason: Protocol Stop: 07/08/17 10:01 Pantoprazole Sodium (Protonix Ec Tab) 40 mg PO 0600 [facility] Physical Exam - Constitutional Appears: Non-toxic, Chronically Ill - Head Exam Head Exam: NORMAL INSPECTION - ENT Exam ENT Exam: Mucous Membranes Moist - Neck Exam Neck exam: Negative for: Meningismus - Respiratory Exam Respiratory Exam: Decreased Breath Sounds - Cardiovascular Exam Cardiovascular Exam: +S1, +S2 - GI/Abdominal Exam GI & Abdominal Exam: Soft. absent: Tenderness Results - Vital Signs Recent Vital Signs: Last Vital Signs Temp 98.6 F 07/02/17 22:42 Pulse 76 07/03/17 04:20 Resp 16 07/03/17 04:20 BP 141/58 L 07/03/17 04:01 Pulse Ox 97 07/03/17 04:20 - Labs Result Diagrams: 07/03/17 06:20 07/03/17 06:20 Labs: Laboratory Results - last 24 hr 07/03/17 02:10 pO2 48 VBG pH 7.37 VBG pCO2 50.0 VBG HCO3 28.9 H VBG Total CO2 30.4 H VBG O2 Sat (Calc) 88.4 H VBG Base Excess 2.7 H VBG Potassium 3.5 L Sodium 145.0 Chloride 109.0 H Glucose 176 H Lactate 3.3 H FiO2 21.0 Venous Blood Potassium 3.5 L Assessment & Plan - Assessment and Plan (Free Text) Plan: Assessment Severe sepsis with fluid-responsive hypotension and acute renal failure due to systemic viral illness with Influenza, R/O bacterial sepsis HTN chronic CHF obesity with BMI 37 history of thyroid disease Plan Started patient on Tamiflu and should complete 5 days of therapy; keep on droplet isolation patient has been started on Rocephin and Doxycycline and will follow up blood, urine cx, PCT; CXR does not show infiltrates will monitor clinically
--- NOTE | 2017-07-03 12:28 | CP.PCM.PN ---
<Laurel Hill - Last Filed: 07/03/17 21:12> Subjective - Date & Time of Evaluation Date of Evaluation: 07/03/17 Time of Evaluation: 07:30 - Subjective Subjective: Laurel Hill DO PGy1 - IM Progress Note Patient seen and examined at bedside in the ICU. Per nursing staff, no acute events overnight. Patient had dementia at baseline, is currently oriented to person only, but does recall some of the circumstances of her hospitalization. She denies any chest pain, shortness of breath, abdominal pain, fever, chills, abdominal pain, nausea, vomiting, diarrhea, constipation, dysuria, urinary frequency/urgency/hesitancy. She does report back and bilateral hip pain L>R, especially with movement. Objective - Vital Signs/Intake and Output Vital Signs (last 24 hours): Temp Pulse Resp BP Pulse Ox 98.2 F 80 18 144/78 97 07/03/17 08:00 07/03/17 09:40 07/03/17 09:40 07/03/17 09:00 07/03/17 09:40 Intake and Output: 07/03/17 07/03/17 06:59 18:59 Intake Total 1000 Balance 1000 - Medications Medications: Current Medications Acetaminophen (Tylenol 325mg Tab) 650 mg PO Q6 PRN PRN Reason: Pain, moderate (4-7) Last Admin: 07/02/17 22:51 Dose: 650 mg Aspirin (Ecotrin) 81 mg PO DAILY [facility] Last Admin: 07/03/17 09:14 Dose: 81 mg Atorvastatin Calcium (Lipitor) 20 mg PO DIN [facility] Enoxaparin Sodium (Lovenox) 40 mg SC DAILY [facility] PRN Reason: Protocol Last Admin: 07/03/17 09:14 Dose: 40 mg Ceftriaxone Sodium (Rocephin 1 Gram Ivpb) 1 gm in 100 mls @ 100 mls/hr IVPB DAILY [facility] PRN Reason: Protocol Last Admin: 07/03/17 09:15 Dose: 100 mls/hr Doxycycline Hyclate 100 mg/ (Sodium Chloride) 100 mls @ 100 mls/hr IVPB Q12 [facility] PRN Reason: Protocol Last Admin: 07/03/17 11:09 Dose: 100 mls/hr Oseltamivir Phosphate (Tamiflu Cap) 75 mg PO BID [facility] PRN Reason: Protocol Stop: 07/08/17 07:32 Last Admin: 07/03/17 09:14 Dose: 75 mg Pantoprazole Sodium (Protonix Ec Tab) 40 mg PO 0600 [facility] Last Admin: 07/03/17 07:49 Dose: 40 mg - Labs Labs: 07/03/17 06:20 07/03/17 06:20 PT 11.6 SECONDS (9.4-12.5) 07/02/17 15:15 INR 1.02 (0.93-1.08) 07/02/17 15:15 APTT 18.9 Seconds (25.1-36.5) L 07/02/17 15:15 - Constitutional Appears: Non-toxic, No Acute Distress, Confused - Head Exam Head Exam: ATRAUMATIC, NORMOCEPHALIC - Eye Exam Eye Exam: EOMI, Normal appearance, PERRL - ENT Exam ENT Exam: Mucous Membranes Moist - Neck Exam Neck Exam: Normal Inspection - Respiratory Exam Respiratory Exam: NORMAL BREATHING PATTERN. absent: Accessory Muscle Use, Chest Wall Tenderness - Cardiovascular Exam Cardiovascular Exam: RRR, +S1, +S2 - GI/Abdominal Exam GI & Abdominal Exam: Soft, Normal Bowel Sounds. absent: Distended, Firm, Guarding, Rigid, Tenderness, Organomegaly, Rebound - Extremities Exam Extremities Exam: absent: Calf Tenderness, Pedal Edema - Neurological Exam Neurological Exam: Alert, Awake, CN II-XII Intact Neuro motor strength exam: Left Upper Extremity: 5, Right Upper Extremity: 5, Left Lower Extremity: 5, Right Lower Extremity: 5 Additional comments: Oriented to person; recalls some circumstances of hospitalization - Psychiatric Exam Psychiatric exam: Normal Affect, Normal Mood - Skin Skin Exam: Dry, Intact, Normal Color Assessment and Plan - Assessment and Plan (Free Text) Assessment: 76 yo female with PMH of HTN, CHF presents to ED after fall with leg and back pain found to have sepsis. Plan: 1. Sepsis likely 2/2 flu - Rapid flu positive; blood cultures, urine cultures pending - Procal pending - lactate 4.1 in ED; trended down with IVF - UA and CXR unremarkable - Patient had transient episode of hypotension; fluid responsive - BP stable, discontinue IVF - Continue ceftriaxone, azithromycin and tamiflu - Resume home BP meds, per ICU; hold lasix - ID consulted 2. Syncope with fall - head ct normal - xray hip- no fractures, advance degenerative disease - knee xray- severe degenerative disease, no fractures - Tylenol prn for pain 3. History of CHF - Pro BNP low, negative trops x1 - Considering syncopal episode, ordered echo; baseline unknown 4. history of HTN - BP stable; resume home medications; titrate as needed - continue to monitor 5. Multinodular goiter - Goiter noted on CT C/A/P - Ordered TSH and thyroid US 6. Pancreatic masses and adrenal mass - CT abd/pel/chest: No acute abnormality. Multinodular goiter. Two low-density pancreatic masses, 1.5 cm and 2.3 cm. Bilateral renal cortical cysts. 2.7 cm left adrenal mass. - Unknown chronicity; will discuss with family; if new findings, will require repeat imaging to assess for stability and chronicity ppx - GI- protonix - DVT- Lovenox <Christina Porras - Last Filed: 07/05/17 13:14> Objective - Vital Signs/Intake and Output Vital Signs (last 24 hours): Temp Pulse Resp BP Pulse Ox 99.1 F 102 H 20 160/103 H 94 L 07/05/17 11:00 07/05/17 11:00 07/05/17 11:00 07/05/17 11:00 07/05/17 11:00 Intake and Output: 07/05/17 07/05/17 06:59 18:59 Intake Total 0 Balance 0 - Medications Medications: Current Medications Acetaminophen (Tylenol 325mg Tab) 650 mg PO Q6 PRN PRN Reason: Pain, moderate (4-7) Last Admin: 07/02/17 22:51 Dose: 650 mg Amoxicillin/Clavulanate Potassium (Augmentin 875 Mg-125 Mg Tab) 1 tab PO Q12 [facility] PRN Reason: Protocol Last Admin: 07/05/17 10:19 Dose: 1 tab Aspirin (Ecotrin) 81 mg PO DAILY [facility] Last Admin: 07/05/17 10:19 Dose: 81 mg Atorvastatin Calcium (Lipitor) 20 mg PO DIN [facility] Last Admin: 07/04/17 17:37 Dose: 20 mg Enoxaparin Sodium (Lovenox) 40 mg SC DAILY [facility] PRN Reason: Protocol Last Admin: 07/05/17 10:19 Dose: 40 mg Hydralazine HCl (Apresoline) 25 mg PO TID [facility] Last Admin: 07/05/17 10:19 Dose: 25 mg Losartan Potassium (Cozaar) 50 mg PO BID [facility] Last Admin: 07/05/17 10:19 Dose: 50 mg Metoprolol Tartrate (Lopressor) 25 mg PO BID [facility] Last Admin: 07/05/17 10:19 Dose: 25 mg Oseltamivir Phosphate (Tamiflu Cap) 75 mg PO BID [facility] PRN Reason: Protocol Stop: 07/08/17 07:32 Last Admin: 07/05/17 10:19 Dose: 75 mg Pantoprazole Sodium (Protonix Ec Tab) 40 mg PO 0600 [facility] Last Admin: 07/05/17 05:43 Dose: 40 mg Potassium Chloride (K-Dur 20 Meq Er Tab) 20 meq PO BRK [facility] - Labs Labs: 07/05/17 06:00 07/05/17 06:00 PT 11.6 SECONDS (9.4-12.5) 07/02/17 15:15 INR 1.02 (0.93-1.08) 07/02/17 15:15 APTT 18.9 Seconds (25.1-36.5) L 07/02/17 15:15 Attending/Attestation - Attestation I have personally seen and examined this patient.: Yes I have fully participated in the care of the patient.: Yes I have reviewed all pertinent clinical information, including history, physical exam and plan: Yes Notes (Text): 07/05/17 13:12 Medical record note made by the resident after discussion with my direction and input after the patient was personally seen and examined by me. I have reviewed the chart and agree that the record accurately reflects by personal performance of the history, physical exam, data review, and medical decision-making, in the course for the patient. I have also personally directed the plan of care. 76 yrs old female with PMH of Dementia,HTN was admitted with H/O fall, syncope? , was found to have hypotension, leukocytosis and elevated lactic acid level.Patient blood pressure and lactic acid has improved with IV hydration.Patient is found to have influenza infection and is on Tamiflu, she is also on IV antibiotics as per ID.We will follow up cultures. Patient does not has any focal deficit.
--- NOTE | 2017-07-03 17:25 | CARD ---
APPROVED REPORT EXAM: Two-dimensional and M-mode echocardiogram with Doppler and color Doppler. INDICATION Congestive Heart Failure 2D DIMENSIONS Left Atrium (2D)4.5 (1.6-4.0cm)IVSd1.2 (0.7-1.1cm) LVDd3.6 (3.9-5.9cm)PWd1.3 (0.7-1.1cm) LVDs2.4 (2.5-4.0cm)FS (%) 33.5 % LVEF (%)63.1 (>50%) M-Mode DIMENSIONS Aortic Root3.50 (2.2-3.7cm)Aortic Cusp Exc.2.00 (1.5-2.0cm) Aortic Valve AoV Peak Glwxvtxp555.0cm/Meli Peak GR.11mmHg Mitral Valve MV E Utpirtaw01.6cm/sMV A Qltkhpcg480.0cm/sE/A ratio0.7 TDI Lateral E' Peak V8.68cm/sMedial E' Peak V8.68cm/sE/Lateral E'8.7 E/Medial E'8.7 Pulmonary Valve PV Peak Eqoqjkql458.0cm/sPV Peak Grad.6mmHg Tricuspid Valve TR Peak Almzlmqm910ap/sRAP LMEIFQCT45qvLqUE Peak Gr.28mmHg [id number] LEFT VENTRICLE The left ventricle is normal size. There is mild concentric left ventricular hypertrophy. The left ventricular function is normal.EF-60-65 There is normal LV segmental wall motion. Transmitral Doppler flow pattern is Grade III-reversible restrictive diastolic dysfunction. No left ventricle thrombus noted on this study. There is no ventricular septal defect visualized. There is no left ventricular aneurysm. There is no mass noted in the left ventricle. RIGHT VENTRICLE The right ventricle is normal size. There is normal right ventricular wall thickness. The right ventricular systolic function is normal. ATRIA The left atrium is mildly dilated. The right atrium size is normal. The interatrial septum is intact with no evidence for an atrial septal defect. AORTIC VALVE The aortic valve is thickened but opens well. No aortic regurgitation is present. There is no aortic valvular stenosis. There is no aortic valvular vegetation. MITRAL VALVE The mitral valve is thickened but opens well. Mitral regurgitation is trace. There is no mitral valve stenosis. There is no evidence of mitral valve prolapse. TRICUSPID VALVE The tricuspid valve leaflets are thickened , but open well. There is trace tricuspid regurgitation.RVSP-38 mmof Hg. There is no tricuspid valve stenosis. There is no tricuspid valve prolapse or vegetation. PULMONIC VALVE The pulmonic valve is borderline thickened. There is trace to mild pulmonic valvular regurgitation. There is no pulmonic valvular stenosis. GREAT VESSELS The aortic root is normal in size. The ascending aorta is normal in size. The pulmonary artery is normal. The IVC is normal in size and collapses >50% with inspiration. PERICARDIAL EFFUSION There is no pleural effusion. There is no pericardial effusion. <Conclusion> The left ventricle is normal size. There is mild concentric left ventricular hypertrophy. The left ventricular function is normal.EF-60-65 Mitral regurgitation is trace. There is trace tricuspid regurgitation.RVSP-38 mmof Hg.
[2017-07-04] MEDS: Pantoprazole 40 mg EC Tab PO SCH (05:22)
[2017-07-04 06:35] LABS: BASO # 0.02 K/mm3 (0.0-2.0); BASO % 0.1 % (0.0-3.0); EOS # 0.2 (0.0-0.7); GRAN # 13.83 (1.4-6.5); GRAN % 86.1 % (50.0-68.0); HEMOGLOBIN 12.5 g/dL (12.0-16.0); LYMPH # 1.1 (1.2-3.4); MEAN CELL VOLUME 91.6 fl (80.0-105.0); MEAN CORPUSCULAR HEMOGLOBIN 29.1 pg (25.0-35.0); MEAN CORPUSCULAR HGB CONC 31.8 g/dl (31.0-37.0); MEAN PLATELET VOLUME 10.5 fl (7.0-11.0); MONO # 0.9 (0.1-0.6); MONO % 5.8 % (1.0-6.0); RBC 4.29 10^6/uL (3.5-6.1); RED CELL DISTRIBUTION WIDTH 14.6 % (11.5-14.5); WHITE BLOOD COUNT 16.1 10^3/ul (4.5-11.0)
[2017-07-04 07:07] LABS: ALBUMIN 3.3 g/dL (3.0-4.8); ALT/SGPT 39 U/L (7-56); AST/SGOT 54 U/L (14-36); BLOOD UREA NITROGEN 19 mg/dL (7-21); CALCIUM 9.1 mg/dL (8.4-10.5); GFR AFRICAN-AMERICAN > 60; GFR NON-AFRICAN AMERICAN > 60
--- NOTE | 2017-07-04 08:49 | CP.PCM.PN ---
<Laurel Hill - Last Filed: 07/04/17 17:00> Subjective - Date & Time of Evaluation Date of Evaluation: 07/04/17 Time of Evaluation: 07:30 - Subjective Subjective: Laurel Sergio DO PGY1 - IM Progress Note Patient seen and examined at bedside. Per nursing staff, no acute events overnight. She remains on droplet precautions for flu. Patient is oriented to person only, has dementia at baseline. She has no particular complaints. Denies any chest pain, shortness of breath, fever, chills, cough, nausea, vomiting, diarrhea, constipation, abdominal pain, dysuria, urinary frequency/urgency/ hesitancy. Patient denies back pain or hip pain, but is noted to have some difficulty and discomfort with movement in the bed. Objective - Vital Signs/Intake and Output Vital Signs (last 24 hours): Temp Pulse Resp BP Pulse Ox 98 F 93 H 20 138/67 98 07/04/17 05:40 07/04/17 05:40 07/04/17 05:40 07/04/17 05:40 07/04/17 05:40 Intake and Output: 07/04/17 07/04/17 06:59 18:59 Intake Total 150 Output Total 500 Balance -350 - Medications Medications: Current Medications Acetaminophen (Tylenol 325mg Tab) 650 mg PO Q6 PRN PRN Reason: Pain, moderate (4-7) Last Admin: 07/02/17 22:51 Dose: 650 mg Aspirin (Ecotrin) 81 mg PO DAILY [facility] Last Admin: 07/03/17 09:14 Dose: 81 mg Atorvastatin Calcium (Lipitor) 20 mg PO DIN [facility] Last Admin: 07/03/17 17:48 Dose: 20 mg Enoxaparin Sodium (Lovenox) 40 mg SC DAILY [facility] PRN Reason: Protocol Last Admin: 07/03/17 09:14 Dose: 40 mg Hydralazine HCl (Apresoline) 25 mg PO TID [facility] Last Admin: 07/03/17 17:41 Dose: 25 mg Ceftriaxone Sodium (Rocephin 1 Gram Ivpb) 1 gm in 100 mls @ 100 mls/hr IVPB DAILY [facility] PRN Reason: Protocol Last Admin: 07/03/17 09:15 Dose: 100 mls/hr Doxycycline Hyclate 100 mg/ (Sodium Chloride) 100 mls @ 100 mls/hr IVPB Q12 [facility] PRN Reason: Protocol Last Admin: 07/03/17 21:21 Dose: 100 mls/hr Losartan Potassium (Cozaar) 50 mg PO BID [facility] Last Admin: 07/03/17 17:43 Dose: 50 mg Oseltamivir Phosphate (Tamiflu Cap) 75 mg PO BID [facility] PRN Reason: Protocol Stop: 07/08/17 07:32 Pantoprazole Sodium (Protonix Ec Tab) 40 mg PO 0600 [facility] Last Admin: 07/04/17 05:22 Dose: 40 mg - Labs Labs: 07/04/17 05:20 07/04/17 05:20 PT 11.6 SECONDS (9.4-12.5) 07/02/17 15:15 INR 1.02 (0.93-1.08) 07/02/17 15:15 APTT 18.9 Seconds (25.1-36.5) L 07/02/17 15:15 - Additional Findings Additional findings: - Constitutional Appears: Non-toxic, No Acute Distress, Confused - Head Exam Head Exam: ATRAUMATIC, NORMOCEPHALIC - Eye Exam Eye Exam: EOMI, Normal appearance, PERRL - ENT Exam ENT Exam: Mucous Membranes Moist - Neck Exam Neck Exam: Normal Inspection - Respiratory Exam Respiratory Exam: NORMAL BREATHING PATTERN. absent: Accessory Muscle Use, Chest Wall Tenderness - Cardiovascular Exam Cardiovascular Exam: RRR, +S1, +S2 - GI/Abdominal Exam GI & Abdominal Exam: Soft, Normal Bowel Sounds. absent: Distended, Firm, Guarding, Rigid, Tenderness, Organomegaly, Rebound - Extremities Exam Extremities Exam: absent: Calf Tenderness, Pedal Edema - Neurological Exam Neurological Exam: Alert, Awake, CN II-XII Intact Neuro motor strength exam: Left Upper Extremity: 5, Right Upper Extremity: 5, Left Lower Extremity: 5, Right Lower Extremity: 5 Additional comments: Oriented to person; recalls some circumstances of hospitalization - Psychiatric Exam Psychiatric exam: Normal Affect, Normal Mood - Skin Skin Exam: Dry, Intact, Normal Color Assessment and Plan - Assessment and Plan (Free Text) Assessment: 76 yo female with PMH of HTN, CHF presents to ED after fall with leg and back pain found to have sepsis. Plan: 1. Sepsis likely 2/2 flu - Rapid flu positive; blood cultures show now growth after 24 hours, urine cultures pending - Procal markedly elevated; no bacterial source identified as yet - UA and CXR unremarkable - BP stable; SIRS resolved - Antibiotics discontinued per ID; continue tamiflu for 5 days (ends 07/08) - ID on consult; appreciate recs 2. Syncope with fall - Likely 2/2 transient hypotension 2/2 sepsis/flu - Maintain fall precautions - Tylenol prn for pain 3. History of CHF - Pro BNP low, negative trops x3 - Echo done, shows LVEF 60-65%, otherwise unremarkable. 4. history of HTN - BP stable; resume home medications; titrate as needed - continue to monitor 5. Multinodular goiter - Goiter noted on CT C/A/P - TSH wnl - Thyroid US shows heterogenously enlarged gland b/ with multiple large complex isoechoic and hyperechoic nodules with cystic components 6. Pancreatic masses and adrenal mass - CT abd/pel/chest: No acute abnormality. Multinodular goiter. Two low-density pancreatic masses, 1.5 cm and 2.3 cm. Bilateral renal cortical cysts. 2.7 cm left adrenal mass. - Unknown chronicity; will discuss with family; if new findings, will require repeat imaging to assess for stability and chronicity ppx - GI- protonix - DVT- Lovenox <Christina Porras - Last Filed: 07/05/17 13:16> Objective - Vital Signs/Intake and Output Vital Signs (last 24 hours): Temp Pulse Resp BP Pulse Ox 99.1 F 102 H 20 160/103 H 94 L 07/05/17 11:00 07/05/17 11:00 07/05/17 11:00 07/05/17 11:00 07/05/17 11:00 Intake and Output: 07/05/17 07/05/17 06:59 18:59 Intake Total 0 Balance 0 - Medications Medications: Current Medications Acetaminophen (Tylenol 325mg Tab) 650 mg PO Q6 PRN PRN Reason: Pain, moderate (4-7) Last Admin: 07/02/17 22:51 Dose: 650 mg Amoxicillin/Clavulanate Potassium (Augmentin 875 Mg-125 Mg Tab) 1 tab PO Q12 [facility] PRN Reason: Protocol Last Admin: 07/05/17 10:19 Dose: 1 tab Aspirin (Ecotrin) 81 mg PO DAILY [facility] Last Admin: 07/05/17 10:19 Dose: 81 mg Atorvastatin Calcium (Lipitor) 20 mg PO DIN [facility] Last Admin: 07/04/17 17:37 Dose: 20 mg Enoxaparin Sodium (Lovenox) 40 mg SC DAILY [facility] PRN Reason: Protocol Last Admin: 07/05/17 10:19 Dose: 40 mg Hydralazine HCl (Apresoline) 25 mg PO TID [facility] Last Admin: 07/05/17 10:19 Dose: 25 mg Losartan Potassium (Cozaar) 50 mg PO BID [facility] Last Admin: 07/05/17 10:19 Dose: 50 mg Metoprolol Tartrate (Lopressor) 25 mg PO BID [facility] Last Admin: 07/05/17 10:19 Dose: 25 mg Oseltamivir Phosphate (Tamiflu Cap) 75 mg PO BID [facility] PRN Reason: Protocol Stop: 07/08/17 07:32 Last Admin: 07/05/17 10:19 Dose: 75 mg Pantoprazole Sodium (Protonix Ec Tab) 40 mg PO 0600 [facility] Last Admin: 07/05/17 05:43 Dose: 40 mg Potassium Chloride (K-Dur 20 Meq Er Tab) 20 meq PO BRK [facility] - Labs Labs: 07/05/17 06:00 07/05/17 06:00 PT 11.6 SECONDS (9.4-12.5) 07/02/17 15:15 INR 1.02 (0.93-1.08) 07/02/17 15:15 APTT 18.9 Seconds (25.1-36.5) L 07/02/17 15:15 Attending/Attestation - Attestation I have personally seen and examined this patient.: Yes I have fully participated in the care of the patient.: Yes I have reviewed all pertinent clinical information, including history, physical exam and plan: Yes Notes (Text): 07/05/17 13:15 Medical record note made by the resident after discussion with my direction and input after the patient was personally seen and examined by me. I have reviewed the chart and agree that the record accurately reflects by personal performance of the history, physical exam, data review, and medical decision-making, in the course for the patient. I have also personally directed the plan of care. 76 yrs old female with PMH of Dementia,HTN was admitted with H/O fall, syncope? , was found to have hypotension, leukocytosis and elevated lactic acid level.Patient blood pressure and lactic acid has improved with IV hydration.Patient is found to have influenza infection and is on Tamiflu, Procalcitonin level is high,WBC is coming down.Patient does not has any focal deficit. We will discuss with family regarding CT scan and thyroid finding.
--- NOTE | 2017-07-04 08:59 | US ---
HISTORY: multinodular goiter TECHNIQUE: Sonographic evaluation of the thyroid gland. COMPARISON: None. FINDINGS: RIGHT LOBE: Measures 3.2 x 3.3 x 7.8 cm. Heterogeneous enlarged gland. Nodules: Complex primarily solid nodule with cystic components midpole region 2 x 2.8 x 2.3 cm. LEFT LOBE: Measures 3.7 x 5 x 8.9 cm. Heterogeneous, enlarged left lobe Nodules: Midpole well-circumscribed isoechoic nodule 3.2 x 4.9 x 4.2 cm. Small cystic regions identified. Bold primarily solid hyperechoic nodule upper pole 2.3 x 2.8 x 3.3 cm. ISTHMUS: Measures 0.95 cm. Nodules: Solid nodule peripheral rim vascularity is increased. This measures 1.3 x 2.1 x 1.7 cm. OTHER FINDINGS: None . IMPRESSION: Markedly enlarged heterogeneous gland were multiple dominant nodules. Recommendations for follow-up: 1. Radionuclide Scan to assess Thyroid function and to evaluate the thyroid for the presence of hot or cold nodules. 2. Fine needle aspiration (FNA) should also be considered as an invasive diagnostic tool in the assessment of findings described above.
[2017-07-04] MEDS: Enoxaparin 40 mg Syringe SC SCH (09:17)
[2017-07-04] MEDS: cefTRIAXone 1 gm 1 GM/100 ML BAG IVPB SCH (09:18)
--- NOTE | 2017-07-04 10:23 | CP.PCM.PN ---
Subjective - Date & Time of Evaluation Date of Evaluation: 07/04/17 Time of Evaluation: 10:00 - Subjective Subjective: Feeling better, muscle aches are better, no nausea, no diarrhea, cough is improved, no rhinorrhea or sore throat, BP now has normalized. Objective - Vital Signs/Intake and Output Vital Signs (last 24 hours): Temp Pulse Resp BP Pulse Ox 98 F 93 H 20 138/67 98 07/04/17 05:40 07/04/17 05:40 07/04/17 05:40 07/04/17 05:40 07/04/17 05:40 Intake and Output: 07/04/17 07/04/17 06:59 18:59 Intake Total 150 Output Total 500 Balance -350 - Medications Medications: Current Medications Acetaminophen (Tylenol 325mg Tab) 650 mg PO Q6 PRN PRN Reason: Pain, moderate (4-7) Last Admin: 07/02/17 22:51 Dose: 650 mg Aspirin (Ecotrin) 81 mg PO DAILY [facility] Last Admin: 07/03/17 09:14 Dose: 81 mg Atorvastatin Calcium (Lipitor) 20 mg PO DIN [facility] Last Admin: 07/03/17 17:48 Dose: 20 mg Enoxaparin Sodium (Lovenox) 40 mg SC DAILY [facility] PRN Reason: Protocol Last Admin: 07/03/17 09:14 Dose: 40 mg Hydralazine HCl (Apresoline) 25 mg PO TID [facility] Last Admin: 07/03/17 17:41 Dose: 25 mg Ceftriaxone Sodium (Rocephin 1 Gram Ivpb) 1 gm in 100 mls @ 100 mls/hr IVPB DAILY [facility] PRN Reason: Protocol Last Admin: 07/03/17 09:15 Dose: 100 mls/hr Doxycycline Hyclate 100 mg/ (Sodium Chloride) 100 mls @ 100 mls/hr IVPB Q12 [facility] PRN Reason: Protocol Last Admin: 07/03/17 21:21 Dose: 100 mls/hr Losartan Potassium (Cozaar) 50 mg PO BID [facility] Last Admin: 07/03/17 17:43 Dose: 50 mg Oseltamivir Phosphate (Tamiflu Cap) 75 mg PO BID [facility] PRN Reason: Protocol Stop: 07/08/17 07:32 Pantoprazole Sodium (Protonix Ec Tab) 40 mg PO 0600 [facility] Last Admin: 07/04/17 05:22 Dose: 40 mg - Labs Labs: 07/04/17 05:20 07/04/17 05:20 PT 11.6 SECONDS (9.4-12.5) 07/02/17 15:15 INR 1.02 (0.93-1.08) 07/02/17 15:15 APTT 18.9 Seconds (25.1-36.5) L 07/02/17 15:15 - Constitutional Appears: Non-toxic, Chronically Ill - Head Exam Head Exam: NORMAL INSPECTION - ENT Exam ENT Exam: Mucous Membranes Moist - Neck Exam Neck Exam: absent: Lymphadenopathy, Meningismus - Respiratory Exam Respiratory Exam: Decreased Breath Sounds. absent: Rales - Cardiovascular Exam Cardiovascular Exam: +S1, +S2 - GI/Abdominal Exam GI & Abdominal Exam: Soft. absent: Tenderness Assessment and Plan - Assessment and Plan (Free Text) Plan: Assessment Severe sepsis with fluid-responsive hypotension and acute renal failure due to systemic viral illness with Influenza; currently no evidence of bacterial sepsis HTN chronic CHF obesity with BMI 37 history of thyroid disease Plan continue Tamiflu day 2 and should complete 5 days of therapy; keep on droplet isolation was started on Rocephin and Doxycycline but blood cx are negative, urinalysis is unremarkable and she has no urinary symptoms, CT C/A/P does not show evidence of bacterial infection - will d/c antibiotics and observe will continue to monitor clinically
[2017-07-04] MEDS ORDERED: Pneumococcal 23-Valent Vaccine IM ONE (23:20)
[2017-07-04] MEDS ORDERED: Influenza Vaccine 60 mcg/0.5 mL SYR (4YR UP) IM ONE (23:20)
[2017-07-05] MEDS: Pantoprazole 40 mg EC Tab PO SCH (05:43)
[2017-07-05 07:04] LABS: ALBUMIN 3.3 g/dL (3.0-4.8); ALT/SGPT 42 U/L (7-56); AST/SGOT 54 U/L (14-36); BLOOD UREA NITROGEN 16 mg/dL (7-21); GFR AFRICAN-AMERICAN > 60; GFR NON-AFRICAN AMERICAN > 60
[2017-07-05 07:06] LABS: BASO # 0.03 K/mm3 (0.0-2.0); BASO % 0.2 % (0.0-3.0); EOS # 0.1 (0.0-0.7); EOS % 0.9 % (1.5-5.0); GRAN # 10.76 (1.4-6.5); GRAN % 81.5 % (50.0-68.0); HEMOGLOBIN 12.8 g/dL (12.0-16.0); LYMPH # 1.3 (1.2-3.4); LYMPH % 10.1 % (22.0-35.0); MEAN CELL VOLUME 90.7 fl (80.0-105.0); MEAN PLATELET VOLUME 10.7 fl (7.0-11.0); MONO % 7.3 % (1.0-6.0); RBC 4.41 10^6/uL (3.5-6.1); RED CELL DISTRIBUTION WIDTH 14.5 % (11.5-14.5); WHITE BLOOD COUNT 13.2 10^3/ul (4.5-11.0)
[2017-07-05] MEDS: Enoxaparin 40 mg Syringe SC SCH (10:19)
[2017-07-05] MEDS: Amoxicillin-Clav 875-125 mg Tab PO SCH ×2 (10:19→22:17)
[2017-07-05] MEDS ORDERED: Potassium Chloride 20 mEq ER Tab PO ONE (10:43)
--- NOTE | 2017-07-05 11:54 | CP.PCM.PN ---
<Diogenes Ni - Last Filed: 07/05/17 12:49> Subjective - Date & Time of Evaluation Date of Evaluation: 07/05/17 Time of Evaluation: 08:25 - Subjective Subjective: Diogenes Ni DO, PGY-1: Hospitalist Service Patient seen and examined at bedside. Patient is refusing/taking off telemetry monitors. Patient states Eliel Baryr is the president. Nurse reports blood pressure is not well controlled. Family was spoken to in regard to the thyroid US and the findings of the CT of the chest, abdomen, and pelvis. Family does not wish to pursue any further work-up at this time. The family has already seen and top frame fitter in regards to the thyroid nodules. Objective - Vital Signs/Intake and Output Vital Signs (last 24 hours): Temp Pulse Resp BP Pulse Ox 99.1 F 102 H 20 160/103 H 94 L 07/05/17 11:00 07/05/17 11:00 07/05/17 11:00 07/05/17 11:00 07/05/17 11:00 Intake and Output: 07/05/17 07/05/17 06:59 18:59 Intake Total 0 Balance 0 - Medications Medications: Current Medications Acetaminophen (Tylenol 325mg Tab) 650 mg PO Q6 PRN PRN Reason: Pain, moderate (4-7) Last Admin: 07/02/17 22:51 Dose: 650 mg Amoxicillin/Clavulanate Potassium (Augmentin 875 Mg-125 Mg Tab) 1 tab PO Q12 [facility] PRN Reason: Protocol Last Admin: 07/05/17 10:19 Dose: 1 tab Aspirin (Ecotrin) 81 mg PO DAILY [facility] Last Admin: 07/05/17 10:19 Dose: 81 mg Atorvastatin Calcium (Lipitor) 20 mg PO DIN [facility] Last Admin: 07/04/17 17:37 Dose: 20 mg Enoxaparin Sodium (Lovenox) 40 mg SC DAILY [facility] PRN Reason: Protocol Last Admin: 07/05/17 10:19 Dose: 40 mg Hydralazine HCl (Apresoline) 25 mg PO TID [facility] Last Admin: 07/05/17 10:19 Dose: 25 mg Losartan Potassium (Cozaar) 50 mg PO BID [facility] Last Admin: 07/05/17 10:19 Dose: 50 mg Metoprolol Tartrate (Lopressor) 25 mg PO BID [facility] Last Admin: 07/05/17 10:19 Dose: 25 mg Oseltamivir Phosphate (Tamiflu Cap) 75 mg PO BID [facility] PRN Reason: Protocol Stop: 07/08/17 07:32 Last Admin: 07/05/17 10:19 Dose: 75 mg Pantoprazole Sodium (Protonix Ec Tab) 40 mg PO 0600 [facility] Last Admin: 07/05/17 05:43 Dose: 40 mg - Labs Labs: 07/05/17 06:00 07/05/17 06:00 PT 11.6 SECONDS (9.4-12.5) 07/02/17 15:15 INR 1.02 (0.93-1.08) 07/02/17 15:15 APTT 18.9 Seconds (25.1-36.5) L 07/02/17 15:15 - Constitutional Appears: Non-toxic, No Acute Distress - Head Exam Head Exam: ATRAUMATIC, NORMOCEPHALIC - Eye Exam Eye Exam: EOMI, Normal appearance - ENT Exam ENT Exam: Mucous Membranes Moist, Normal Oropharynx - Neck Exam Neck Exam: Normal Inspection - Respiratory Exam Respiratory Exam: Clear to Ausculation Bilateral, NORMAL BREATHING PATTERN. absent: Accessory Muscle Use - Cardiovascular Exam Cardiovascular Exam: RRR, +S1, +S2 - GI/Abdominal Exam GI & Abdominal Exam: Soft, Normal Bowel Sounds - Extremities Exam Extremities Exam: Normal Capillary Refill, Normal Inspection - Back Exam Back Exam: NORMAL INSPECTION. absent: CVA tenderness (L), CVA tenderness (R) - Neurological Exam Neurological Exam: Alert, Awake. absent: Oriented x3 - Psychiatric Exam Psychiatric exam: Normal Affect, Normal Mood - Skin Skin Exam: Dry, Intact, Normal Color, Warm Assessment and Plan - Assessment and Plan (Free Text) Assessment: 76 yo female with PMH of HTN, CHF presents to ED after fall with leg and back pain found to have sepsis. Plan: 1. Sepsis likely 2/2 flu - Rapid flu positive; blood cultures show now growth after 24 hours, urine cultures pending - Procal markedly elevated; no bacterial source identified as yet; repeat procalcitonin 1/5 level prior - UA and CXR unremarkable - BP stable; SIRS resolved - Antibiotics discontinued per ID; continue tamiflu for 5 days (ends 07/08) - ID on consult; appreciate recs 2. Syncope with fall - Likely 2/2 transient hypotension 2/2 sepsis/flu - Maintain fall precautions - Tylenol prn for pain 3. History of CHF - Pro BNP low, negative trops x3 - Echo done, shows LVEF 60-65%, otherwise unremarkable. 4. history of HTN - BP stable; resume home medications; titrate as needed - continue to monitor - Metoprolol 25 mg BID added - Lasix should be re-instituted 5. Multinodular goiter - Goiter noted on CT C/A/P - TSH wnl - Thyroid US shows heterogenously enlarged gland b/ with multiple large complex isoechoic and hyperechoic nodules with cystic components 6. Pancreatic masses and adrenal mass - CT abd/pel/chest: No acute abnormality. Multinodular goiter. Two low-density pancreatic masses, 1.5 cm and 2.3 cm. Bilateral renal cortical cysts. 2.7 cm left adrenal mass. - Unknown chronicity; will discuss with family; if new findings, will require repeat imaging to assess for stability and chronicity - Family was spoken to in regards to the above mentioned imaging findings and do not wish to pursue further work-up at this time. ppx - GI- protonix - DVT- Lovenon <Christina Porras - Last Filed: 07/05/17 13:23> Objective - Vital Signs/Intake and Output Vital Signs (last 24 hours): Temp Pulse Resp BP Pulse Ox 99.1 F 102 H 20 160/103 H 94 L 07/05/17 11:00 07/05/17 11:00 07/05/17 11:00 07/05/17 11:00 07/05/17 11:00 Intake and Output: 07/05/17 07/05/17 06:59 18:59 Intake Total 0 Balance 0 - Medications Medications: Current Medications Acetaminophen (Tylenol 325mg Tab) 650 mg PO Q6 PRN PRN Reason: Pain, moderate (4-7) Last Admin: 07/02/17 22:51 Dose: 650 mg Amoxicillin/Clavulanate Potassium (Augmentin 875 Mg-125 Mg Tab) 1 tab PO Q12 [facility] PRN Reason: Protocol Last Admin: 07/05/17 10:19 Dose: 1 tab Aspirin (Ecotrin) 81 mg PO DAILY [facility] Last Admin: 07/05/17 10:19 Dose: 81 mg Atorvastatin Calcium (Lipitor) 20 mg PO DIN [facility] Last Admin: 07/04/17 17:37 Dose: 20 mg Enoxaparin Sodium (Lovenox) 40 mg SC DAILY [facility] PRN Reason: Protocol Last Admin: 07/05/17 10:19 Dose: 40 mg Hydralazine HCl (Apresoline) 25 mg PO TID [facility] Last Admin: 07/05/17 10:19 Dose: 25 mg Losartan Potassium (Cozaar) 50 mg PO BID [facility] Last Admin: 07/05/17 10:19 Dose: 50 mg Metoprolol Tartrate (Lopressor) 25 mg PO BID [facility] Last Admin: 07/05/17 10:19 Dose: 25 mg Oseltamivir Phosphate (Tamiflu Cap) 75 mg PO BID [facility] PRN Reason: Protocol Stop: 07/08/17 07:32 Last Admin: 07/05/17 10:19 Dose: 75 mg Pantoprazole Sodium (Protonix Ec Tab) 40 mg PO 0600 [facility] Last Admin: 07/05/17 05:43 Dose: 40 mg Potassium Chloride (K-Dur 20 Meq Er Tab) 20 meq PO BRK [facility] - Labs Labs: 07/05/17 06:00 07/05/17 06:00 PT 11.6 SECONDS (9.4-12.5) 07/02/17 15:15 INR 1.02 (0.93-1.08) 07/02/17 15:15 APTT 18.9 Seconds (25.1-36.5) L 07/02/17 15:15 Attending/Attestation - Attestation I have personally seen and examined this patient.: Yes I have fully participated in the care of the patient.: Yes I have reviewed all pertinent clinical information, including history, physical exam and plan: Yes Notes (Text): 07/05/17 13:18 Medical record note made by the resident after discussion with my direction and input after the patient was personally seen and examined by me. I have reviewed the chart and agree that the record accurately reflects by personal performance of the history, physical exam, data review, and medical decision-making, in the course for the patient. I have also personally directed the plan of care. 76 yrs old female with PMH of Dementia,HTN was admitted with H/O fall, syncope? , was found to have hypotension, leukocytosis and elevated lactic acid level.Patient blood pressure and lactic acid has improved with IV hydration.Patient is found to have influenza infection and is on Tamiflu, Patient Procalcitonin level is coming down.We will start patient on Augmentin.Patient is afebrile.Cultures are negative.Patient does not has any focal deficit. Patient thyroid US and CT scan finding were discussed with her daughter.As per daughter , patient already has throid biopsy with her top frame fitter, and results are pending at this time.She will follow up adrenal and Pancreatitic CT scan finding with her PCP and endocrinology as out patient. Patient has advance dementia Prognosis is guarded.
--- NOTE | 2017-07-05 16:45 | PN ---
DATE: 07/05/2017 SUBJECTIVE: The patient is in bed in no acute distress, nontoxic. PHYSICAL EXAMINATION: VITAL SIGNS: Temperature is 98, blood pressure is 160/90, respiratory rate of 20, heart rate of 102. HEENT: Unremarkable. NECK: Supple. LUNGS: Have decreased breath sounds. HEART: Normal S1, S2. ABDOMEN: Soft, nontender. LABORATORY EXAMINATION: Reveals a white count of 13,000, hemoglobin of 12, platelets of 176. BUN of 16, creatinine of 0.7. Procalcitonin is 5.43 from today it is down from 20 and urinalysis is noted. Serology reveals influenza is positive. A CAT scan of the chest is reviewed. CAT scan of the chest reveals lungs to be clear. No nodules. No mass or consolidation. There is multinodular thyroid. ASSESSMENT AND PLAN: A 76-year-old female who was seen early this morning in [facility], bed 1 with severe sepsis with fluid responsive hypotension, acute renal failure due to systemic viral illness with influenza. No evidence of a bacterial sepsis. The patient does have elevated procalcitonin that appears to be responding, on day #3 of Tamiflu, would complete 5 days. The patient is on p.o. Augmentin started by Dr. Porras. She would complete 5 days of Tamiflu. Juan Simpson MD
[2017-07-05] MEDS ORDERED: Albuterol-Ipratrop 3 mg / 0.5 (3 ml) UD IH PRN (21:21)
[2017-07-05] MEDS: Albuterol-Ipratrop 3 mg / 0.5 (3 ml) UD IH SCH (21:34)
[2017-07-05] MEDS ORDERED: DiphenhydrAMINE 12.5 mg/5 ml LIQ UD (5 ml) PO STA (21:36)
[2017-07-06] MEDS: Albuterol-Ipratrop 3 mg / 0.5 (3 ml) UD IH SCH ×4 (01:19→20:41)
[2017-07-06] MEDS: Pantoprazole 40 mg EC Tab PO SCH (05:28)
[2017-07-06 06:46] LABS: BASO # 0.03 K/mm3 (0.0-2.0); BASO % 0.3 % (0.0-3.0); EOS # 0.2 (0.0-0.7); EOS % 1.4 % (1.5-5.0); GRAN # 9.13 (1.4-6.5); GRAN % 76.7 % (50.0-68.0); HEMOGLOBIN 11.6 g/dL (12.0-16.0); LYMPH # 1.4 (1.2-3.4); LYMPH % 11.4 % (22.0-35.0); MEAN CELL VOLUME 90.6 fl (80.0-105.0); MEAN CORPUSCULAR HEMOGLOBIN 28.6 pg (25.0-35.0); MEAN CORPUSCULAR HGB CONC 31.5 g/dl (31.0-37.0); MEAN PLATELET VOLUME 10.8 fl (7.0-11.0); MONO # 1.2 (0.1-0.6); MONO % 10.2 % (1.0-6.0); RBC 4.06 10^6/uL (3.5-6.1); RED CELL DISTRIBUTION WIDTH 14.7 % (11.5-14.5); WHITE BLOOD COUNT 11.9 10^3/ul (4.5-11.0)
[2017-07-06 07:00] LABS: ALT/SGPT 30 U/L (7-56); AST/SGOT 48 U/L (14-36); BLOOD UREA NITROGEN 14 mg/dL (7-21); CALCIUM 8.8 mg/dL (8.4-10.5); GFR AFRICAN-AMERICAN > 60; GFR NON-AFRICAN AMERICAN > 60
[2017-07-06] MEDS ORDERED: Potassium Chloride 20 mEq ER Tab PO SCH (08:00)
[2017-07-06] MEDS: Amoxicillin-Clav 875-125 mg Tab PO SCH ×2 (09:02→21:58)
[2017-07-06] MEDS: Enoxaparin 40 mg Syringe SC SCH (09:04)
[2017-07-06 10:15] LABS: PH,URINE 5.5 (4.7-8.0); URINE BILIRUBIN NEGATIVE (NEGATIVE); URINE BLOOD NEGATIVE (NEGATIVE); URINE GLUCOSE (UA) NEGATIVE (NEGATIVE); URINE LEUKOCYTE ESTERASE NEGATIVE Leu/uL (NEGATIVE); URINE PROTEIN TRACE mg/dL (<30 mg/dL); URINE UROBILINOGEN 0.2 E.U./dL (<1 E.U./dL)
[2017-07-06 10:16] LABS: URINE COLOR YELLOW (YELLOW)
[2017-07-06 10:17] LABS: URINE APPEARANCE CLEAR (CLEAR)
[2017-07-06 10:26] LABS: URINE BACTERIA FEW (NEG); URINE EPITHELIAL CELLS 0 - 2 /hpf (0-5); URINE RBC 0 - 2 /hpf (0-2); URINE WBC 0 - 2 /hpf (0-6)
--- NOTE | 2017-07-06 11:27 | CP.PCM.PN ---
<Diogenes Ni - Last Filed: 07/06/17 12:48> Subjective - Date & Time of Evaluation Date of Evaluation: 07/06/17 Time of Evaluation: 09:40 - Subjective Subjective: Diogenes Ni DO, PGY-1: Hospitalist Service Patient seen and examined at bedside. Chart review indicates patient had audible wheezing and appeared to be confused overnight per night nursing staff. Patient observed in the morning refreshed with no signs of lethargy or confusion. Family was also present on the second encounter. Family was very agreeable to STEPHEN recommendations. Family reports patient mental status has dramatically improved compared to at the time of admission. Objective - Vital Signs/Intake and Output Vital Signs (last 24 hours): Temp Pulse Resp BP Pulse Ox 98.2 F 112 H 21 115/66 91 L 07/06/17 07:44 07/06/17 09:04 07/06/17 07:44 07/06/17 09:05 07/06/17 07:44 - Medications Medications: Current Medications Acetaminophen (Tylenol 325mg Tab) 650 mg PO Q6 PRN PRN Reason: Pain, moderate (4-7) Last Admin: 07/02/17 22:51 Dose: 650 mg Albuterol/Ipratropium (Duoneb 3 Mg/0.5 Mg (3 Ml) Ud) 3 ml IH [id number] [facility] Last Admin: 07/06/17 07:26 Dose: 3 ml Albuterol/Ipratropium (Duoneb 3 Mg/0.5 Mg (3 Ml) Ud) 3 ml I[facility] [id number] PRN PRN Reason: Wheezing Amoxicillin/Clavulanate Potassium (Augmentin 875 Mg-125 Mg Tab) 1 tab PO Q12 [facility] PRN Reason: Protocol Last Admin: 07/06/17 09:02 Dose: 1 tab Aspirin (Ecotrin) 81 mg PO DAILY [facility] Last Admin: 07/06/17 09:05 Dose: 81 mg Atorvastatin Calcium (Lipitor) 20 mg PO DIN [facility] Last Admin: 07/05/17 17:34 Dose: 20 mg Enoxaparin Sodium (Lovenox) 40 mg SC DAILY [facility] PRN Reason: Protocol Last Admin: 07/06/17 09:04 Dose: 40 mg Furosemide (Lasix) 40 mg PO BID [facility] Last Admin: 07/06/17 09:05 Dose: 40 mg Losartan Potassium (Cozaar) 50 mg PO BID [facility] Last Admin: 07/06/17 09:04 Dose: 50 mg Metoprolol Tartrate (Lopressor) 37.5 mg PO BID [facility] Last Admin: 07/06/17 09:02 Dose: 37.5 mg Oseltamivir Phosphate (Tamiflu Cap) 75 mg PO BID [facility] PRN Reason: Protocol Stop: 07/08/17 07:32 Last Admin: 07/06/17 09:05 Dose: 75 mg Pantoprazole Sodium (Protonix Ec Tab) 40 mg PO 0600 [facility] Last Admin: 07/06/17 05:28 Dose: 40 mg Potassium Chloride (K-Dur 20 Meq Er Tab) 40 meq PO Q4 [facility] Stop: 07/06/17 16:01 - Labs Labs: 07/06/17 06:00 07/06/17 06:00 PT 11.6 SECONDS (9.4-12.5) 07/02/17 15:15 INR 1.02 (0.93-1.08) 07/02/17 15:15 APTT 18.9 Seconds (25.1-36.5) L 07/02/17 15:15 - Constitutional Appears: Non-toxic, No Acute Distress - Head Exam Head Exam: ATRAUMATIC, NORMOCEPHALIC - Eye Exam Eye Exam: EOMI, Normal appearance - ENT Exam ENT Exam: Mucous Membranes Moist - Neck Exam Neck Exam: Normal Inspection - Respiratory Exam Respiratory Exam: Rales (bilaterally), NORMAL BREATHING PATTERN. absent: Accessory Muscle Use - Cardiovascular Exam Cardiovascular Exam: RRR, +S1, +S2 - GI/Abdominal Exam GI & Abdominal Exam: Soft, Normal Bowel Sounds - Back Exam Back Exam: NORMAL INSPECTION. absent: CVA tenderness (L), CVA tenderness (R) Additional comments: 1/4 edema bilaterally - Neurological Exam Neurological Exam: Alert, Awake - Psychiatric Exam Psychiatric exam: Normal Affect, Normal Mood - Skin Skin Exam: Dry, Intact, Normal Color, Warm Assessment and Plan - Assessment and Plan (Free Text) Assessment: 76 yo female with PMH of HTN, CHF presents to ED after fall with leg and back pain found to have sepsis. Plan: 1. Leukocytosis: Sepsis resolved - Augmentin 875/125 BID - Probiotic also added: lactobacillus BID - Rapid flu positive; blood cultures show now growth after 24 hours, urine cultures pending - Procal markedly elevated; no bacterial source identified as yet; repeat procalcitonin 1/4 level prior - UA and CXR unremarkable - BP stable; SIRS resolved - continue tamiflu for 5 days (ends 07/08) and Augme - ID on consult; appreciate recs 2. Syncope with fall - Likely 2/2 transient hypotension 2/2 sepsis/flu - Maintain fall precautions - Tylenol prn for pain 3. History of CHF - Pro BNP low, negative trops x3 - Echo done, shows LVEF 60-65%, otherwise unremarkable. 4. history of HTN - BP stable; resume home medications; titrate as needed - continue to monitor - Metoprolol 25 mg BID added - Lasix 40 mg BID 5. Multinodular goiter - Goiter noted on CT C/A/P - TSH wnl - Thyroid US shows heterogenously enlarged gland b/ with multiple large complex isoechoic and hyperechoic nodules with cystic components 6. Pancreatic masses and adrenal mass - CT abd/pel/chest: No acute abnormality. Multinodular goiter. Two low-density pancreatic masses, 1.5 cm and 2.3 cm. Bilateral renal cortical cysts. 2.7 cm left adrenal mass. - Unknown chronicity; will discuss with family; if new findings, will require repeat imaging to assess for stability and chronicity - Family was spoken to in regards to the above mentioned imaging findings and do not wish to pursue further work-up at this time. ppx - GI- protonix - DVT- Tangelanon <Christina Porras - Last Filed: 07/06/17 15:17> Objective - Vital Signs/Intake and Output Vital Signs (last 24 hours): Temp Pulse Resp BP Pulse Ox 98.2 F 112 H 21 115/66 91 L 07/06/17 07:44 07/06/17 09:04 07/06/17 07:44 07/06/17 09:05 07/06/17 07:44 Intake and Output: 07/06/17 07/06/17 06:59 18:59 Intake Total 725 Balance 725 - Medications Medications: Current Medications Acetaminophen (Tylenol 325mg Tab) 650 mg PO Q6 PRN PRN Reason: Pain, moderate (4-7) Last Admin: 07/02/17 22:51 Dose: 650 mg Albuterol/Ipratropium (Duoneb 3 Mg/0.5 Mg (3 Ml) Ud) 3 ml IH [id number] [facility] Last Admin: 07/06/17 14:04 Dose: 3 ml Albuterol/Ipratropium (Duoneb 3 Mg/0.5 Mg (3 Ml) Ud) 3 ml [facility] [id number] PRN PRN Reason: Wheezing Amoxicillin/Clavulanate Potassium (Augmentin 875 Mg-125 Mg Tab) 1 tab PO Q12 [facility] PRN Reason: Protocol Last Admin: 07/06/17 09:02 Dose: 1 tab Aspirin (Ecotrin) 81 mg PO DAILY [facility] Last Admin: 07/06/17 09:05 Dose: 81 mg Atorvastatin Calcium (Lipitor) 20 mg PO DIN [facility] Last Admin: 07/05/17 17:34 Dose: 20 mg Enoxaparin Sodium (Lovenox) 40 mg SC DAILY [facility] PRN Reason: Protocol Last Admin: 07/06/17 09:04 Dose: 40 mg Furosemide (Lasix) 40 mg PO BID [facility] Last Admin: 07/06/17 09:05 Dose: 40 mg Lactobacillus Acidophilus (Bacid Acidophilus) 1 cap PO BID [facility] Losartan Potassium (Cozaar) 50 mg PO BID [facility] Last Admin: 07/06/17 09:04 Dose: 50 mg Metoprolol Tartrate (Lopressor) 37.5 mg PO BID [facility] Last Admin: 07/06/17 09:02 Dose: 37.5 mg Oseltamivir Phosphate (Tamiflu Cap) 75 mg PO BID [facility] PRN Reason: Protocol Stop: 07/08/17 07:32 Last Admin: 07/06/17 09:05 Dose: 75 mg Pantoprazole Sodium (Protonix Ec Tab) 40 mg PO 0600 [facility] Last Admin: 07/06/17 05:28 Dose: 40 mg Potassium Chloride (K-Dur 20 Meq Er Tab) 40 meq PO Q4 [facility] Stop: 07/06/17 16:01 Last Admin: 07/06/17 12:04 Dose: 40 meq - Labs Labs: 07/06/17 06:00 07/06/17 06:00 PT 11.6 SECONDS (9.4-12.5) 07/02/17 15:15 INR 1.02 (0.93-1.08) 07/02/17 15:15 APTT 18.9 Seconds (25.1-36.5) L 07/02/17 15:15 Attending/Attestation - Attestation I have personally seen and examined this patient.: Yes I have fully participated in the care of the patient.: Yes I have reviewed all pertinent clinical information, including history, physical exam and plan: Yes Notes (Text): 07/06/17 15:13 Medical record note made by the resident after discussion with my direction and input after the patient was personally seen and examined by me. I have reviewed the chart and agree that the record accurately reflects by personal performance of the history, physical exam, data review, and medical decision-making, in the course for the patient. I have also personally directed the plan of care. 76 yrs old female with PMH of Dementia,HTN was admitted with H/O fall, syncope? , was found to have hypotension, leukocytosis and elevated lactic acid level.Patient blood pressure and lactic acid has improved with IV hydration. Patient is found to have influenza infection and is on Tamiflu, Patient Procalcitonin level is coming down, also on Augmentin for possible Pneumonia Patient is afebrile. Cultures are negative. Patient thyroid US and CT scan finding were discussed with her daughter. As per daughter, patient already has thyroid biopsy with her filter cleaner, and results are pending at this time. She will follow up adrenal and Pancreatitic CT scan finding with her PCP and endocrinology as outpatient.PT has recommended [facility], Patient will be discharged to [facility] once arrangement are made. Prognosis is guarded.
[2017-07-06] MEDS: Potassium Chloride 20 mEq ER Tab PO SCH ×2 (12:04→17:28)
--- NOTE | 2017-07-06 13:09 | RAD ---
HISTORY: dyspnea COMPARISON: Portable chest 07/02/2017 FINDINGS: LUNGS: Left hemidiaphragm is completely silhouetted suggesting atelectasis or infiltrate at the left base with remaining lung horta clear. PLEURA: No significant pleural effusion identified, no pneumothorax apparent. CARDIOVASCULAR: Stable cardiac silhouette. Borderline pulmonary venous congestion. OSSEOUS STRUCTURES: No significant abnormalities. VISUALIZED UPPER ABDOMEN: Normal. OTHER FINDINGS: None. IMPRESSION: Left basilar airspace disease. None on the right. Borderline pulmonary venous congestion.
[2017-07-06] MEDS: Lactobacillus Acidophilus 500 MU Cap PO SCH (17:57)
[2017-07-06] MEDS ORDERED: DiphenhydrAMINE 12.5 mg/5 ml LIQ UD (5 ml) PO PRN (19:35)
--- NOTE | 2017-07-06 23:42 | PN ---
DATE: 07/06/2017 SUBJECTIVE: Patient was seen early this morning in 362, bed 1. Patient's status is unchanged. No fevers. She had an uneventful night. PHYSICAL EXAMINATION: VITAL SIGNS: Temperature is 98, blood pressure is 140/80, respiratory rate of 18. HEENT: Unremarkable. NECK: Supple. LUNGS: Decreased breath sounds. HEART: Normal S1, S2. ABDOMEN: Soft, nontender. LABORATORY DATA: Reveals a white count of 11,900, hemoglobin 11, platelets of 181, and sedimentation rate is 37. Chemistries are noted and procalcitonin is 5.43. Microbiology reveals the blood cultures are negative. Patient had a chest x-ray this morning, which was read by Dr. Saldana , revealed left basilar airspace disease, none on the right. ASSESSMENT AND PLAN: This is a 76-year-old, who was seen early this morning in room 362, bed 1. She was admitted with severe sepsis with fluid responsive hypotension and acute renal failure due to systemic viral illness and influenza. No evidence of bacterial sepsis at this point. Will complete 5 days of Tamiflu, today is day#4, and patient is also on p.o. Augmentin started by Dr. Porras. His progress note is appreciated from today. Juan Simpson MD
[2017-07-07] MEDS: Albuterol-Ipratrop 3 mg / 0.5 (3 ml) UD IH SCH ×4 (01:05→19:58)
[2017-07-07] MEDS: Pantoprazole 40 mg EC Tab PO SCH (05:54)
[2017-07-07 06:34] LABS: BASO # 0.05 K/mm3 (0.0-2.0); BASO % 0.4 % (0.0-3.0); EOS # 0.3 (0.0-0.7); EOS % 1.9 % (1.5-5.0); GRAN # 10.09 (1.4-6.5); GRAN % 76.4 % (50.0-68.0); HEMOGLOBIN 11.3 g/dL (12.0-16.0); LYMPH # 1.8 (1.2-3.4); LYMPH % 13.9 % (22.0-35.0); MEAN CELL VOLUME 91.4 fl (80.0-105.0); MEAN CORPUSCULAR HEMOGLOBIN 28.7 pg (25.0-35.0); MEAN CORPUSCULAR HGB CONC 31.4 g/dl (31.0-37.0); MEAN PLATELET VOLUME 10.2 fl (7.0-11.0); MONO % 7.4 % (1.0-6.0); RBC 3.94 10^6/uL (3.5-6.1); RED CELL DISTRIBUTION WIDTH 15.1 % (11.5-14.5); WHITE BLOOD COUNT 13.2 10^3/ul (4.5-11.0)
[2017-07-07 06:44] LABS: ALB/GLOB RATIO 0.9 (1.1-1.8); ALT/SGPT 34 U/L (7-56); AST/SGOT 49 U/L (14-36); BLOOD UREA NITROGEN 19 mg/dL (7-21); CALCIUM 8.9 mg/dL (8.4-10.5); GFR AFRICAN-AMERICAN > 60; GFR NON-AFRICAN AMERICAN > 60
[2017-07-07 07:53] VITALS: RESP 20
[2017-07-07] MEDS: Lactobacillus Acidophilus 500 MU Cap PO SCH ×2 (10:19→18:02)
[2017-07-07] MEDS: Amoxicillin-Clav 875-125 mg Tab PO SCH ×2 (10:19→21:47)
[2017-07-07] MEDS: Enoxaparin 40 mg Syringe SC SCH (10:20)
--- NOTE | 2017-07-07 15:32 | CP.PCM.PN ---
Subjective - Date & Time of Evaluation Date of Evaluation: 07/07/17 Time of Evaluation: 10:15 - Subjective Subjective: Comfortable, no fevers, no cough, no diarrhea. Objective - Vital Signs/Intake and Output Vital Signs (last 24 hours): Temp Pulse Resp BP Pulse Ox 98.5 F 96 H 20 109/84 95 07/07/17 07:52 07/07/17 07:52 07/07/17 07:52 07/07/17 07:52 07/07/17 07:52 Intake and Output: 07/07/17 07/07/17 06:59 18:59 Output Total 0 Balance 0 - Medications Medications: Current Medications Acetaminophen (Tylenol 325mg Tab) 650 mg PO Q6 PRN PRN Reason: Pain, moderate (4-7) Last Admin: 07/02/17 22:51 Dose: 650 mg Albuterol/Ipratropium (Duoneb 3 Mg/0.5 Mg (3 Ml) Ud) 3 ml IH [id number] TREVER Last Admin: 07/07/17 08:08 Dose: 3 ml Albuterol/Ipratropium (Duoneb 3 Mg/0.5 Mg (3 Ml) Ud) 3 ml IH [id number] PRN PRN Reason: Wheezing Amoxicillin/Clavulanate Potassium (Augmentin 875 Mg-125 Mg Tab) 1 tab PO Q12 [facility] PRN Reason: Protocol Last Admin: 07/06/17 21:58 Dose: 1 tab Aspirin (Ecotrin) 81 mg PO DAILY [facility] Last Admin: 07/06/17 09:05 Dose: 81 mg Atorvastatin Calcium (Lipitor) 20 mg PO DIN [facility] Last Admin: 07/06/17 17:27 Dose: 20 mg Diphenhydramine HCl (Benadryl) 12.5 mg PO HS PRN PRN Reason: Restlessness Last Admin: 07/06/17 21:59 Dose: 12.5 mg Docusate Sodium (Colace) 100 mg PO BID [facility] Last Admin: 07/06/17 19:53 Dose: 100 mg Enoxaparin Sodium (Lovenox) 40 mg SC DAILY [facility] PRN Reason: Protocol Last Admin: 07/06/17 09:04 Dose: 40 mg Furosemide (Lasix) 40 mg PO BID [facility] Last Admin: 07/06/17 17:27 Dose: 40 mg Lactobacillus Acidophilus (Bacid Acidophilus) 1 cap PO BID [facility] Last Admin: 07/06/17 17:57 Dose: 1 cap Losartan Potassium (Cozaar) 50 mg PO BID [facility] Last Admin: 07/06/17 17:28 Dose: 50 mg Metoprolol Tartrate (Lopressor) 37.5 mg PO BID [facility] Last Admin: 07/06/17 17:28 Dose: 37.5 mg Oseltamivir Phosphate (Tamiflu Cap) 75 mg PO BID [facility] PRN Reason: Protocol Stop: 07/08/17 07:32 Last Admin: 07/06/17 17:27 Dose: 75 mg Pantoprazole Sodium (Protonix Ec Tab) 40 mg PO 0600 [facility] Last Admin: 07/07/17 05:54 Dose: 40 mg - Labs Labs: 07/07/17 05:30 07/07/17 05:30 PT 11.6 SECONDS (9.4-12.5) 07/02/17 15:15 INR 1.02 (0.93-1.08) 07/02/17 15:15 APTT 18.9 Seconds (25.1-36.5) L 07/02/17 15:15 - Constitutional Appears: Non-toxic, Chronically Ill - Head Exam Head Exam: NORMAL INSPECTION - ENT Exam ENT Exam: Mucous Membranes Moist - Neck Exam Neck Exam: absent: Meningismus - Respiratory Exam Respiratory Exam: Decreased Breath Sounds - Cardiovascular Exam Cardiovascular Exam: +S1, +S2 - GI/Abdominal Exam GI & Abdominal Exam: Soft. absent: Tenderness Assessment and Plan - Assessment and Plan (Free Text) Plan: Assessment Severe sepsis with fluid-responsive hypotension and acute renal failure due to systemic viral illness with Influenza; currently no evidence of bacterial sepsis HTN chronic CHF obesity with BMI 37 history of thyroid disease Plan continue Tamiflu day 5 and should complete 5 days of therapy; keep on droplet isolation patient has been started by medical team on Augmentin will monitor clinically
--- NOTE | 2017-07-07 15:57 | CP.PCM.DIS ---
Provider - Provider Date of Admission: 07/02/17 20:04 Attending physician: Christina Porras MD Primary care physician: Brett Esquivel MD Consults: ID: Chandra Time Spent in preparation of Discharge (in minutes): 45 Hospital Course - Lab Results Lab Results: Micro Results 07/06/17 10:00 Urine,Catheterized Urine Culture - Final No Growth (<1,000 CFU/ML) 07/02/17 22:52 Nose MRSA Culture (Admit) - Final MRSA NOT DETECTED Most Recent Lab Values WBC 13.2 10^3/ul (4.5-11.0) H 07/07/17 05:30 RBC 3.94 10^6/uL (3.5-6.1) 07/07/17 05:30 Hgb 11.3 g/dL (12.0-16.0) L 07/07/17 05:30 Hct 36.0 % (36.0-48.0) 07/07/17 05:30 MCV 91.4 fl (80.0-105.0) 07/07/17 05:30 MCH 28.7 pg (25.0-35.0) 07/07/17 05:30 MCHC 31.4 g/dl (31.0-37.0) 07/07/17 05:30 RDW 15.1 % (11.5-14.5) H 07/07/17 05:30 Plt Count 184 10^3/uL (120.0-450.0) 07/07/17 05:30 MPV 10.2 fl (7.0-11.0) 07/07/17 05:30 Gran % 76.4 % (50.0-68.0) H 07/07/17 05:30 Lymph % (Auto) 13.9 % (22.0-35.0) L 07/07/17 05:30 [place] % (Auto) 7.4 % (1.0-6.0) H 07/07/17 05:30 Eos % (Auto) 1.9 % (1.5-5.0) 07/07/17 05:30 Baso % (Auto) 0.4 % (0.0-3.0) 07/07/17 05:30 Gran # 10.09 (1.4-6.5) H 07/07/17 05:30 Lymph # (Auto) 1.8 (1.2-3.4) 07/07/17 05:30 [place] # (Auto) 1.0 (0.1-0.6) H 07/07/17 05:30 Eos # (Auto) 0.3 (0.0-0.7) 07/07/17 05:30 Baso # (Auto) 0.05 K/mm3 (0.0-2.0) 07/07/17 05:30 Neutrophils % (Manual) 89 % (50.0-70.0) H 07/02/17 15:15 Band Neutrophils % 3 % (0-2) H 07/02/17 15:15 Lymphocytes % (Manual) 5 % (22.0-35.0) L 07/02/17 15:15 Monocytes % (Manual) 3 % (1.0-6.0) 07/02/17 15:15 ESR 37 mm/hr (0.0-20.0) H 07/04/17 07:00 PT 11.6 SECONDS (9.4-12.5) 07/02/17 15:15 INR 1.02 (0.93-1.08) 07/02/17 15:15 APTT 18.9 Seconds (25.1-36.5) L 07/02/17 15:15 pO2 57 mm/Hg (30-55) H 07/03/17 06:20 VBG pH 7.35 (7.32-7.43) 07/03/17 06:20 VBG pCO2 54.0 (40-60) 07/03/17 06:20 VBG HCO3 29.8 mmol/l (21-28) H 07/03/17 06:20 VBG Total CO2 31.5 mmol.L (22-28) H 07/03/17 06:20 VBG O2 Sat (Calc) 93.2 % (40-65) H 07/03/17 06:20 VBG Base Excess 2.9 mmol/L (0.0-2.0) H 07/03/17 06:20 VBG Potassium 3.5 mmol/L (3.6-5.2) L 07/03/17 06:20 Sodium 144.0 mmol/L (132-148) 07/03/17 06:20 Chloride 109.0 mmol/L (98-107) H 07/03/17 06:20 Glucose 153 mg/dl (65-105) H 07/03/17 06:20 Lactate 2.6 mmol/L (0.7-2.1) H 07/03/17 06:20 FiO2 21.0 % 07/03/17 06:20 Sodium 143 mmol/L (132-148) 07/07/17 05:30 Potassium 4.1 mmol/L (3.6-5.0) 07/07/17 05:30 Chloride 110 mmol/L (98-107) H 07/07/17 05:30 Carbon Dioxide 29 mmol/L (21-33) 07/07/17 05:30 Anion Gap 9 (10-20) L 07/07/17 05:30 BUN 19 mg/dL (7-21) 07/07/17 05:30 Creatinine 0.8 mg/dl (0.7-1.2) 07/07/17 05:30 Est GFR ( Amer) > 60 07/07/17 05:30 Est GFR (Non-Af Amer) > 60 07/07/17 05:30 Random Glucose 132 mg/dL (70-110) H 07/07/17 05:30 Lactic Acid 1.8 mmol/L (0.7-2.1) 07/03/17 08:10 Calcium 8.9 mg/dL (8.4-10.5) 07/07/17 05:30 Total Bilirubin 1.0 mg/dL (0.2-1.3) 07/07/17 05:30 AST 49 U/L (14-36) H 07/07/17 05:30 ALT 34 U/L (7-56) 07/07/17 05:30 Alkaline Phosphatase 150 U/L (38-126) H 07/07/17 05:30 Lactate Dehydrogenase 798 U/L (333-699) H 07/02/17 15:15 Total Creatine Kinase 43 U/L (35-230) 07/02/17 15:15 Troponin I 0.02 ng/mL D 07/03/17 13:50 C-Reactive Protein 136.70 mg/L (0.0-9.9) H 07/04/17 07:00 NT-Pro-B Natriuret Pep 815 pg/mL (0-450) H 07/05/17 23:15 Total Protein 6.2 g/dL (5.8-8.3) 07/07/17 05:30 Albumin 3.0 g/dL (3.0-4.8) 07/07/17 05:30 Globulin 3.2 gm/dL 07/07/17 05:30 Albumin/Globulin Ratio 0.9 (1.1-1.8) L 07/07/17 05:30 Procalcitonin 5.43 NG/ML (0.19-0.49) H 07/05/17 06:00 Free T4 1.04 ng/dL (0.78-2.19) 07/04/17 05:20 TSH 3rd Generation 1.09 mIU/mL (0.46-4.68) 07/03/17 13:50 Venous Blood Potassium 3.5 mmol/L (3.6-5.2) L 07/03/17 06:20 Urine Color Yellow (YELLOW) 07/06/17 10:00 Urine Appearance Clear (CLEAR) 07/06/17 10:00 Urine pH 5.5 (4.7-8.0) 07/06/17 10:00 Ur Specific [place] >= 1.030 (1.005-1.035) 07/06/17 10:00 Urine Protein Trace mg/dL (<30 mg/dL) H 07/06/17 10:00 Urine Glucose (UA) Negative mg/dL (NEGATIVE) 07/06/17 10:00 Urine Ketones Negative mg/dL (NEGATIVE) 07/06/17 10:00 Urine Blood Negative (NEGATIVE) 07/06/17 10:00 Urine Nitrate Negative (NEGATIVE) 07/06/17 10:00 Urine Bilirubin Negative (NEGATIVE) 07/06/17 10:00 Urine Urobilinogen 0.2 E.U./dL (<1 E.U./dL) 07/06/17 10:00 Ur Leukocyte Esterase Negative [place]/uL (NEGATIVE) 07/06/17 10:00 Urine RBC 0 - 2 /hpf (0-2) 07/06/17 10:00 Urine WBC 0 - 2 /hpf (0-6) 07/06/17 10:00 Ur Epithelial Cells 0 - 2 /hpf (0-5) 07/06/17 10:00 Urine Bacteria Few (NEG) 07/06/17 10:00 Influenza Typ A,B (EIA) Pos for influenza a (NEGATIVE) H 07/02/17 18:54 Ur L.pneumophila Ag Negative (NEGATIVE) 07/06/17 10:00 Discharge Exam - Head Exam Head Exam: NORMAL INSPECTION Discharge Plan - Discharge Medications Prescriptions: Amoxicillin/Clavulanate [Augmentin 875 MG-125 MG Tab] 1 tab PO Q12 #10 tab Lactobacillus Acidophilus [Bacid Acidophilus] 1 cap PO BID #10 cap Oseltamivir [Tamiflu Cap] 75 mg PO BID #14 cap - Follow Up Plan Condition: CRITICAL Disposition: REHAB FACILITY/REHAB UNIT Instructions: Flu, Sepsis in Adults Additional Instructions: - Continue to take Augmentin twice daily for 5 more days - Continue to take Tamiflu twice daily for 7 more days - Follow up with Dr. 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 Recommend radionuclide scan to assess hot or cold nodule. - Per daughter , the patient will follow up adrenal and Pancreatitic CT scan finding with her PCP and endocrinology as out patient. Referrals: Brett Esquivel MD [Primary Care Provider] -
--- NOTE | 2017-07-07 18:51 | CP.PCM.PN ---
<Laurel Hill - Last Filed: 07/07/17 18:42> Subjective - Date & Time of Evaluation Date of Evaluation: 07/07/17 Time of Evaluation: 07:30 - Subjective Subjective: Laurel Sergio DO PGY1 - IM Progress Note Patient seen and examined at bedside. Per nursing staff, no acute events overnight. She remains on droplet precautions for flu. She has no particular complaints. Denies any chest pain, shortness of breath, fever, chills, cough, nausea, vomiting, diarrhea, constipation, abdominal pain, dysuria, urinary frequency/urgency/hesitancy. Daughter was at bedside. Objective - Vital Signs/Intake and Output Vital Signs (last 24 hours): Temp Pulse Resp BP Pulse Ox 97.6 F 80 20 112/80 93 L 07/07/17 17:56 07/07/17 18:03 07/07/17 17:56 07/07/17 18:03 07/07/17 17:56 Intake and Output: 07/07/17 07/07/17 06:59 18:59 Intake Total 480 Output Total 0 Balance 0 480 - Medications Medications: Current Medications Acetaminophen (Tylenol 325mg Tab) 650 mg PO Q6 PRN PRN Reason: Pain, moderate (4-7) Last Admin: 07/02/17 22:51 Dose: 650 mg Albuterol/Ipratropium (Duoneb 3 Mg/0.5 Mg (3 Ml) Ud) 3 ml IH [id number] TREVER Last Admin: 07/07/17 13:38 Dose: 3 ml Albuterol/Ipratropium (Duoneb 3 Mg/0.5 Mg (3 Ml) Ud) 3 ml IH [id number] PRN PRN Reason: Wheezing Amoxicillin/Clavulanate Potassium (Augmentin 875 Mg-125 Mg Tab) 1 tab PO Q12 [facility] PRN Reason: Protocol Last Admin: 07/07/17 10:19 Dose: 1 tab Aspirin (Ecotrin) 81 mg PO DAILY [facility] Last Admin: 07/07/17 10:19 Dose: 81 mg Atorvastatin Calcium (Lipitor) 20 mg PO DIN [facility] Last Admin: 07/07/17 18:04 Dose: 20 mg Diphenhydramine HCl (Benadryl) 12.5 mg PO HS PRN PRN Reason: Restlessness Last Admin: 07/06/17 21:59 Dose: 12.5 mg Docusate Sodium (Colace) 100 mg PO BID [facility] Last Admin: 07/07/17 18:03 Dose: 100 mg Enoxaparin Sodium (Lovenox) 40 mg SC DAILY [facility] PRN Reason: Protocol Last Admin: 07/07/17 10:20 Dose: 40 mg Furosemide (Lasix) 40 mg PO BID [facility] Last Admin: 07/07/17 18:02 Dose: 40 mg Lactobacillus Acidophilus (Bacid Acidophilus) 1 cap PO BID [facility] Last Admin: 07/07/17 18:02 Dose: 1 cap Losartan Potassium (Cozaar) 50 mg PO BID [facility] Last Admin: 07/07/17 18:03 Dose: 50 mg Metoprolol Tartrate (Lopressor) 37.5 mg PO BID [facility] Last Admin: 07/07/17 18:00 Dose: 37.5 mg Oseltamivir Phosphate (Tamiflu Cap) 75 mg PO BID [facility] PRN Reason: Protocol Stop: 07/08/17 07:32 Last Admin: 07/07/17 18:03 Dose: 75 mg Pantoprazole Sodium (Protonix Ec Tab) 40 mg PO 0600 [facility] Last Admin: 07/07/17 05:54 Dose: 40 mg - Labs Labs: 07/07/17 05:30 07/07/17 05:30 PT 11.6 SECONDS (9.4-12.5) 07/02/17 15:15 INR 1.02 (0.93-1.08) 07/02/17 15:15 APTT 18.9 Seconds (25.1-36.5) L 07/02/17 15:15 - Additional Findings Additional findings: - Constitutional Appears: Non-toxic, No Acute Distress - Head Exam Head Exam: ATRAUMATIC, NORMOCEPHALIC - Eye Exam Eye Exam: EOMI, Normal appearance - ENT Exam ENT Exam: Mucous Membranes Moist - Neck Exam Neck Exam: Normal Inspection - Respiratory Exam Respiratory Exam: Rales (bilaterally), NORMAL BREATHING PATTERN. absent: Accessory Muscle Use - Cardiovascular Exam Cardiovascular Exam: RRR, +S1, +S2 - GI/Abdominal Exam GI & Abdominal Exam: Soft, Normal Bowel Sounds - Back Exam Back Exam: NORMAL INSPECTION. absent: CVA tenderness (L), CVA tenderness (R) - Neurological Exam Neurological Exam: Alert, Awake - Psychiatric Exam Psychiatric exam: Normal Affect, Normal Mood - Skin Skin Exam: Dry, Intact, Normal Color, Warm Assessment and Plan - Assessment and Plan (Free Text) Assessment: 76 yo female with PMH of HTN, CHF presents to ED after fall with leg and back pain found to have sepsis. Positive for influenza A Plan: 1. Leukocytosis: Sepsis resolved - Augmentin 875/125 BID for CAP - Continue probiotic, lactobacillus BID - Rapid flu positive; blood and urine cultures negative - Initial procalcitonin elevated, repeat procal trending down, though still elevated; likely 2/2 CAP, as seen on CXR - CXR done yesterday shows LLL infilatrate vs consolidation - BP stable; SIRS resolved - Continue tamiflu - ID on consult; appreciate recs 2. Syncope with fall - Likely 2/2 transient hypotension 2/2 sepsis/flu - Maintain fall precautions - Tylenol prn for pain 3. History of CHF - Pro BNP low, negative trops x3 - Echo done, shows LVEF 60-65%, otherwise unremarkable. 4. history of HTN - BP stable; resume home medications; titrate as needed - Continue Metoprolol 25 mg BID - Lasix 40 mg BID 5. 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 Pancreatic masses and adrenal mass - CT abd/pel/chest: No acute abnormality. Multinodular goiter. Two low-density pancreatic masses, 1.5 cm and 2.3 cm. Bilateral renal cortical cysts. 2.7 cm left adrenal mass. - Discussed with daughter at bedside; family elects for outpatient follow up with PCP Ppx - GI- protonix - DVT- Tsering Patient discussed and reviewed with attending Dr. Tolentino <Parminder Tolentino - Last Filed: 07/11/17 13:25> Objective - Vital Signs/Intake and Output Vital Signs (last 24 hours): Temp Pulse Resp BP Pulse Ox 97.7 F 61 20 150/53 L 96 07/10/17 16:00 07/10/17 16:00 07/10/17 16:00 07/10/17 16:00 07/10/17 16:00 - Labs Labs: 07/07/17 05:30 07/07/17 05:30 PT 11.6 SECONDS (9.4-12.5) 07/02/17 15:15 INR 1.02 (0.93-1.08) 07/02/17 15:15 APTT 18.9 Seconds (25.1-36.5) L 07/02/17 15:15 Attending/Attestation - Attestation I have personally seen and examined this patient.: Yes I have fully participated in the care of the patient.: Yes I have reviewed all pertinent clinical information, including history, physical exam and plan: Yes Notes (Text): 76 yo female with PMH of HTN, CHF presents to ED after fall with leg and back pain found to have sepsis. Positive for influenza A Plan: 1. Leukocytosis: Sepsis resolved 2. Syncope with fall 3. History of CHF diastolic likely not acute - Echo done, shows LVEF 60-65%, otherwise unremarkable. 4. history of HTN 5. Multinodular goiter
[2017-07-08] MEDS: Albuterol-Ipratrop 3 mg / 0.5 (3 ml) UD IH SCH ×4 (02:28→20:21)
[2017-07-08] MEDS: Pantoprazole 40 mg EC Tab PO SCH (06:14)
[2017-07-08] MEDS: Amoxicillin-Clav 875-125 mg Tab PO SCH ×2 (11:02→22:26)
[2017-07-08] MEDS: Lactobacillus Acidophilus 500 MU Cap PO SCH ×2 (11:02→18:24)
[2017-07-08] MEDS: Enoxaparin 40 mg Syringe SC SCH (11:07)
--- NOTE | 2017-07-08 18:38 | CP.PCM.PN ---
<Laurel Hill - Last Filed: 07/08/17 18:39> Subjective - Date & Time of Evaluation Date of Evaluation: 07/08/17 Time of Evaluation: 07:30 - Subjective Subjective: Laurel Hill DO PGY1 - IM Progress Note Patient seen and examined at bedside. Per nursing staff, no acute events overnight. Pending STEPHEN placement for discharge. She remains on droplet precautions for flu. She has no particular complaints. Denies any chest pain, shortness of breath, fever, chills, cough, nausea, vomiting, diarrhea, abdominal pain, dysuria, urinary frequency/urgency/hesitancy. Objective - Vital Signs/Intake and Output Vital Signs (last 24 hours): Temp Pulse Resp BP Pulse Ox 98.2 F 89 20 123/68 92 L 07/08/17 08:01 07/08/17 18:23 07/08/17 08:01 07/08/17 18:24 07/08/17 08:01 Intake and Output: 07/08/17 07/08/17 06:59 18:59 Intake Total 660 Balance 660 - Medications Medications: Current Medications Acetaminophen (Tylenol 325mg Tab) 650 mg PO Q6 PRN PRN Reason: Pain, moderate (4-7) Last Admin: 07/02/17 22:51 Dose: 650 mg Albuterol/Ipratropium (Duoneb 3 Mg/0.5 Mg (3 Ml) Ud) 3 ml IH [id number] [facility]REVER Last Admin: 07/08/17 13:55 Dose: 3 ml Albuterol/Ipratropium (Duoneb 3 Mg/0.5 Mg (3 Ml) Ud) 3 ml IH [id number] PRN PRN Reason: Wheezing Amoxicillin/Clavulanate Potassium (Augmentin 875 Mg-125 Mg Tab) 1 tab PO Q12 [facility] PRN Reason: Protocol Last Admin: 07/08/17 11:02 Dose: 1 tab Aspirin (Ecotrin) 81 mg PO DAILY [facility] Last Admin: 07/08/17 11:04 Dose: 81 mg Atorvastatin Calcium (Lipitor) 20 mg PO DIN [facility] Last Admin: 07/08/17 18:24 Dose: 20 mg Diphenhydramine HCl (Benadryl) 12.5 mg PO HS PRN PRN Reason: Restlessness Last Admin: 07/06/17 21:59 Dose: 12.5 mg Docusate Sodium (Colace) 100 mg PO BID [facility] Last Admin: 07/08/17 18:25 Dose: 100 mg Enoxaparin Sodium (Lovenox) 40 mg SC DAILY [facility] PRN Reason: Protocol Last Admin: 07/08/17 11:07 Dose: 40 mg Furosemide (Lasix) 40 mg PO BID [facility] Last Admin: 07/08/17 18:24 Dose: 40 mg Lactobacillus Acidophilus (Bacid Acidophilus) 1 cap PO BID [facility] Last Admin: 07/08/17 18:24 Dose: 1 cap Losartan Potassium (Cozaar) 50 mg PO BID [facility] Last Admin: 07/08/17 18:24 Dose: 50 mg Metoprolol Tartrate (Lopressor) 37.5 mg PO BID [facility] Last Admin: 07/08/17 18:23 Dose: 37.5 mg Pantoprazole Sodium (Protonix Ec Tab) 40 mg PO 0600 [facility] Last Admin: 07/08/17 06:14 Dose: 40 mg - Labs Labs: 07/07/17 05:30 07/07/17 05:30 PT 11.6 SECONDS (9.4-12.5) 07/02/17 15:15 INR 1.02 (0.93-1.08) 07/02/17 15:15 APTT 18.9 Seconds (25.1-36.5) L 07/02/17 15:15 - Additional Findings Additional findings: - Constitutional Appears: Non-toxic, No Acute Distress - Head Exam Head Exam: ATRAUMATIC, NORMOCEPHALIC - Eye Exam Eye Exam: EOMI, Normal appearance - ENT Exam ENT Exam: Mucous Membranes Moist - Neck Exam Neck Exam: Normal Inspection - Respiratory Exam Respiratory Exam: Rales (bilaterally), NORMAL BREATHING PATTERN. absent: Accessory Muscle Use - Cardiovascular Exam Cardiovascular Exam: RRR, +S1, +S2 - GI/Abdominal Exam GI & Abdominal Exam: Soft, Normal Bowel Sounds - Back Exam Back Exam: NORMAL INSPECTION. absent: CVA tenderness (L), CVA tenderness (R) - Neurological Exam Neurological Exam: Alert, Awake - Psychiatric Exam Psychiatric exam: Normal Affect, Normal Mood - Skin Skin Exam: Dry, Intact, Normal Color, Warm Assessment and Plan - Assessment and Plan (Free Text) Assessment: 76 yo female with PMH of HTN, CHF presents to ED after fall with leg and back pain found to have sepsis. Positive for influenza A. CXR with RLL consolidation/ infiltrate, presumptive CAP Plan: Influenza A and CAP; SIRS resolved - Augmentin 875/125 BID for CAP - Continue probiotic, lactobacillus BID - Rapid flu positive; blood and urine cultures negative - Continue tamiflu - ID on consult; appreciate recs History of CHF - Pro BNP low, negative trops x3 - Echo done, shows LVEF 60-65%, otherwise unremarkable. 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 Pancreatic masses and adrenal mass - CT abd/pel/chest: No acute abnormality. Multinodular goiter. Two low-density pancreatic masses, 1.5 cm and 2.3 cm. Bilateral renal cortical cysts. 2.7 cm left adrenal mass. - Discussed with daughter at bedside; family elects for outpatient follow up with PCP Ppx - GI: protonix - DVT: Lovenox Pending STEPHEN placement for discharge, per PT recommendations and family request Patient discussed and reviewed with attending Dr. Martinez <Rocio Martinez - Last Filed: 07/09/17 07:02> Objective - Vital Signs/Intake and Output Vital Signs (last 24 hours): Temp Pulse Resp BP Pulse Ox 98.8 F 89 20 123/68 95 07/08/17 16:00 07/08/17 18:23 07/08/17 16:00 07/08/17 18:24 07/08/17 16:00 Intake and Output: 07/08/17 07/09/17 18:59 06:59 Intake Total 900 Balance 900 - Medications Medications: Current Medications Acetaminophen (Tylenol 325mg Tab) 650 mg PO Q6 PRN PRN Reason: Pain, moderate (4-7) Last Admin: 07/02/17 22:51 Dose: 650 mg Albuterol/Ipratropium (Duoneb 3 Mg/0.5 Mg (3 Ml) Ud) 3 ml IH [id number] TREVER Last Admin: 07/09/17 02:42 Dose: 3 ml Albuterol/Ipratropium (Duoneb 3 Mg/0.5 Mg (3 Ml) Ud) 3 ml IH [id number] PRN PRN Reason: Wheezing Amoxicillin/Clavulanate Potassium (Augmentin 875 Mg-125 Mg Tab) 1 tab PO Q12 [facility] PRN Reason: Protocol Last Admin: 07/08/17 22:26 Dose: 1 tab Aspirin (Ecotrin) 81 mg PO DAILY [facility] Last Admin: 07/08/17 11:04 Dose: 81 mg Atorvastatin Calcium (Lipitor) 20 mg PO DIN [facility] Last Admin: 07/08/17 18:24 Dose: 20 mg Diphenhydramine HCl (Benadryl) 12.5 mg PO HS PRN PRN Reason: Restlessness Last Admin: 07/06/17 21:59 Dose: 12.5 mg Docusate Sodium (Colace) 100 mg PO BID [facility] Last Admin: 07/08/17 18:25 Dose: 100 mg Enoxaparin Sodium (Lovenox) 40 mg SC DAILY [facility] PRN Reason: Protocol Last Admin: 07/08/17 11:07 Dose: 40 mg Furosemide (Lasix) 40 mg PO BID [facility] Last Admin: 07/08/17 18:24 Dose: 40 mg Lactobacillus Acidophilus (Bacid Acidophilus) 1 cap PO BID [facility] Last Admin: 07/08/17 18:24 Dose: 1 cap Losartan Potassium (Cozaar) 50 mg PO BID [facility] Last Admin: 07/08/17 18:24 Dose: 50 mg Metoprolol Tartrate (Lopressor) 37.5 mg PO BID [facility] Last Admin: 07/08/17 18:23 Dose: 37.5 mg Pantoprazole Sodium (Protonix Ec Tab) 40 mg PO 0600 [facility] Last Admin: 07/09/17 05:30 Dose: 40 mg - Labs Labs: 07/07/17 05:30 07/07/17 05:30 PT 11.6 SECONDS (9.4-12.5) 07/02/17 15:15 INR 1.02 (0.93-1.08) 07/02/17 15:15 APTT 18.9 Seconds (25.1-36.5) L 07/02/17 15:15 Attending/Attestation - Attestation I have personally seen and examined this patient.: Yes I have fully participated in the care of the patient.: Yes I have reviewed all pertinent clinical information, including history, physical exam and plan: Yes Notes (Text): 07/08/17 76 year old female with past medical history of CHF and hypertension who presented s/p fall. Found to have sepsis with pneumonia and influenza. She is on antibiotics and tamiflu. ID is following. Imaging also showed multinodular goiter, pancreatic mass and adrenal mass for which patient will follow up as outpatient workup. She is currently pending bed to [facility]. Rocio Martinez MD Hospitalist.
--- NOTE | 2017-07-08 22:55 | PN ---
DATE: 07/08/2017 SUBJECTIVE: The patient is in bed, in no acute distress, nontoxic Patient was seen early this morning in room 361. PHYSICAL EXAMINATION: VITAL SIGNS: Temperature is 97, blood pressure is 120/60, respiratory rate of 18, heart rate of 93. HEENT: Unremarkable. NECK: Supple. LUNGS: Have decreased breath sounds. HEART: Normal S1, S2. ABDOMEN: Soft, nontender. LABORATORY DATA: Laboratory examination reveals a white count of 13,200, hemoglobin of 11, platelets of 184. BUN is 19, creatinine is 0.8, procalcitonin is 5.43. Urinalysis . Influenza is positive. Urine for Legionella is negative. Cultures have no growth. The p.o. Augmentin is what the patient is on. Patient is now off of Tamiflu. ASSESSMENT AND PLAN: This is a 76-year-old who was seen early this morning, admitted with severe sepsis with fluid responsive hypotension, acute renal failure and systemic viral illness with influenza. Patient has completed 5 days of Tamiflu. Today is day #4 of Augmentin. We will repeat a procalcitonin. We will follow closely with you. Juan Simpson MD
[2017-07-09] MEDS: Albuterol-Ipratrop 3 mg / 0.5 (3 ml) UD IH SCH ×4 (02:42→20:43)
[2017-07-09] MEDS: Pantoprazole 40 mg EC Tab PO SCH (05:30)
[2017-07-09] MEDS: Lactobacillus Acidophilus 500 MU Cap PO SCH ×2 (09:20→17:40)
[2017-07-09] MEDS: Amoxicillin-Clav 875-125 mg Tab PO SCH (09:20)
[2017-07-09] MEDS: Enoxaparin 40 mg Syringe SC SCH (09:25)
--- NOTE | 2017-07-09 19:00 | PN ---
DATE: 07/09/2017 SUBJECTIVE: The patient is in bed, in no acute distress, nontoxic. PHYSICAL EXAMINATION VITAL SIGNS: Temperature is 98, blood pressure is 150/80, respiratory rate of 18. HEENT: Unremarkable. NECK: Supple. LUNGS: Have decreased breath sounds. HEART: Normal S1, S2. ABDOMEN: Soft, nontender. LABORATORY EXAMINATION: Revels a white count of 13,000, hemoglobin is noted. BUN of 19, creatinine of 0.8, procalcitonin is 0.52. ASSESSMENT AND PLAN: This is a 76-year-old female who was seen early this morning. The patient was admitted with severe sepsis with fluid responsive hypotension, acute renal failure, systemic viral illness and influenza and completed 5 days of Tamiflu, on day #5 of Augmentin. We will discontinue the Augmentin. No further need for antibiotics. We will follow closely with you. Juan Simpson MD
--- NOTE | 2017-07-09 20:18 | CP.PCM.PN ---
<Laurel Hill - Last Filed: 07/09/17 20:15> Subjective - Date & Time of Evaluation Date of Evaluation: 07/09/17 Time of Evaluation: 07:30 - Subjective Subjective: Laurel Hill DO PGY1 - IM Progress Note Patient seen and examined at bedside. Per nursing staff, no acute events overnight. Pending STEPHEN placement for discharge. She is now off droplet precautions. She has no particular complaints. Denies any chest pain, shortness of breath, fever, chills, cough, nausea, vomiting, diarrhea, abdominal pain, dysuria, urinary frequency/urgency/hesitancy. Objective - Vital Signs/Intake and Output Vital Signs (last 24 hours): Temp Pulse Resp BP Pulse Ox 98.5 F 86 20 127/68 95 07/09/17 16:00 07/09/17 17:40 07/09/17 16:00 07/09/17 17:40 07/09/17 16:00 - Medications Medications: Current Medications Acetaminophen (Tylenol 325mg Tab) 650 mg PO Q6 PRN PRN Reason: Pain, moderate (4-7) Last Admin: 07/02/17 22:51 Dose: 650 mg Albuterol/Ipratropium (Duoneb 3 Mg/0.5 Mg (3 Ml) Ud) 3 ml IH [id number] [facility] Last Admin: 07/09/17 13:21 Dose: 3 ml Albuterol/Ipratropium (Duoneb 3 Mg/0.5 Mg (3 Ml) Ud) 3 ml IH [id number] PRN PRN Reason: Wheezing Aspirin (Ecotrin) 81 mg PO DAILY [facility] Last Admin: 07/09/17 09:21 Dose: 81 mg Atorvastatin Calcium (Lipitor) 20 mg PO DIN [facility] Last Admin: 07/09/17 17:39 Dose: 20 mg Diphenhydramine HCl (Benadryl) 12.5 mg PO HS PRN PRN Reason: Restlessness Last Admin: 07/06/17 21:59 Dose: 12.5 mg Docusate Sodium (Colace) 100 mg PO BID [facility] Last Admin: 07/09/17 17:39 Dose: 100 mg Enoxaparin Sodium (Lovenox) 40 mg SC DAILY [facility] PRN Reason: Protocol Last Admin: 07/09/17 09:25 Dose: 40 mg Furosemide (Lasix) 40 mg PO BID [facility] Last Admin: 07/09/17 17:40 Dose: 40 mg Lactobacillus Acidophilus (Bacid Acidophilus) 1 cap PO BID [facility] Last Admin: 07/09/17 17:40 Dose: 1 cap Losartan Potassium (Cozaar) 50 mg PO BID [facility] Last Admin: 07/09/17 17:38 Dose: 50 mg Metoprolol Tartrate (Lopressor) 37.5 mg PO BID [facility] Last Admin: 07/09/17 17:40 Dose: 37.5 mg Pantoprazole Sodium (Protonix Ec Tab) 40 mg PO 0600 [facility] Last Admin: 07/09/17 05:30 Dose: 40 mg - Labs Labs: 07/07/17 05:30 07/07/17 05:30 PT 11.6 SECONDS (9.4-12.5) 07/02/17 15:15 INR 1.02 (0.93-1.08) 07/02/17 15:15 APTT 18.9 Seconds (25.1-36.5) L 07/02/17 15:15 - Additional Findings Additional findings: - Constitutional Appears: Non-toxic, No Acute Distress - Head Exam Head Exam: ATRAUMATIC, NORMOCEPHALIC - Eye Exam Eye Exam: EOMI, Normal appearance - ENT Exam ENT Exam: Mucous Membranes Moist - Neck Exam Neck Exam: Normal Inspection - Respiratory Exam Respiratory Exam: Rales (bilaterally), NORMAL BREATHING PATTERN. absent: Accessory Muscle Use - Cardiovascular Exam Cardiovascular Exam: RRR, +S1, +S2 - GI/Abdominal Exam GI & Abdominal Exam: Soft, Normal Bowel Sounds - Back Exam Back Exam: NORMAL INSPECTION. absent: CVA tenderness (L), CVA tenderness (R) - Neurological Exam Neurological Exam: Alert, Awake - Psychiatric Exam Psychiatric exam: Normal Affect, Normal Mood - Skin Skin Exam: Dry, Intact, Normal Color, Warm Assessment and Plan - Assessment and Plan (Free Text) Assessment: 76 yo female with PMH of HTN, CHF presents to ED after fall with leg and back pain found to have sepsis. Positive for influenza A. CXR with RLL consolidation/ infiltrate, presumptive CAP. Completed course of tamiflu and antibiotics for CAP. Pending STEPHEN placement Plan: Influenza A and CAP; SIRS resolved - Completed course of antibiotics and tamiflu - ID on consult; appreciate recs History of CHF - Echo done, shows LVEF 60-65%, otherwise unremarkable. 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 Martinez <Rocio Martinez - Last Filed: 07/10/17 07:25> Objective - Vital Signs/Intake and Output Vital Signs (last 24 hours): Temp Pulse Resp BP Pulse Ox 98.5 F 86 20 127/68 95 07/09/17 16:00 07/09/17 17:40 07/09/17 16:00 07/09/17 17:40 07/09/17 16:00 Intake and Output: 07/10/17 07/10/17 06:59 18:59 Intake Total 900 Balance 900 - Medications Medications: Current Medications Acetaminophen (Tylenol 325mg Tab) 650 mg PO Q6 PRN PRN Reason: Pain, moderate (4-7) Last Admin: 07/02/17 22:51 Dose: 650 mg Albuterol/Ipratropium (Duoneb 3 Mg/0.5 Mg (3 Ml) Ud) 3 ml IH [id number] [facility] Last Admin: 07/10/17 02:10 Dose: 3 ml Albuterol/Ipratropium (Duoneb 3 Mg/0.5 Mg (3 Ml) Ud) 3 ml IH [id number] PRN PRN Reason: Wheezing Aspirin (Ecotrin) 81 mg PO DAILY [facility] Last Admin: 07/09/17 09:21 Dose: 81 mg Atorvastatin Calcium (Lipitor) 20 mg PO DIN [facility] Last Admin: 07/09/17 17:39 Dose: 20 mg Diphenhydramine HCl (Benadryl) 12.5 mg PO HS PRN PRN Reason: Restlessness Last Admin: 07/06/17 21:59 Dose: 12.5 mg Docusate Sodium (Colace) 100 mg PO BID [facility] Last Admin: 07/09/17 17:39 Dose: 100 mg Enoxaparin Sodium (Lovenox) 40 mg SC DAILY [facility] PRN Reason: Protocol Last Admin: 07/09/17 09:25 Dose: 40 mg Furosemide (Lasix) 40 mg PO BID [facility] Last Admin: 07/09/17 17:40 Dose: 40 mg Lactobacillus Acidophilus (Bacid Acidophilus) 1 cap PO BID [facility] Last Admin: 07/09/17 17:40 Dose: 1 cap Losartan Potassium (Cozaar) 50 mg PO BID [facility] Last Admin: 07/09/17 17:38 Dose: 50 mg Metoprolol Tartrate (Lopressor) 37.5 mg PO BID [facility] Last Admin: 07/09/17 17:40 Dose: 37.5 mg Pantoprazole Sodium (Protonix Ec Tab) 40 mg PO 0600 [facility] Last Admin: 07/10/17 05:33 Dose: 40 mg - Labs Labs: 07/07/17 05:30 07/07/17 05:30 PT 11.6 SECONDS (9.4-12.5) 07/02/17 15:15 INR 1.02 (0.93-1.08) 07/02/17 15:15 APTT 18.9 Seconds (25.1-36.5) L 07/02/17 15:15 Attending/Attestation - Attestation I have personally seen and examined this patient.: Yes I have fully participated in the care of the patient.: Yes I have reviewed all pertinent clinical information, including history, physical exam and plan: Yes Notes (Text): 07/09/17 76 year old female with past medical history of CHF and hypertension who presented s/p fall. Found to have sepsis with pneumonia and influenza. She is s/p treatment with antibiotics and tamiflu. ID is following. Imaging also showed multinodular goiter, pancreatic mass and adrenal mass for which patient will follow up as outpatient workup. She is currently pending bed to [facility], possibly tomorrow. Rocio Martinez MD Hospitalist.
[2017-07-10] MEDS: Albuterol-Ipratrop 3 mg / 0.5 (3 ml) UD IH SCH ×3 (02:10→13:36)
[2017-07-10] MEDS: Pantoprazole 40 mg EC Tab PO SCH (05:33)
[2017-07-10] MEDS: Lactobacillus Acidophilus 500 MU Cap PO SCH (09:38)
[2017-07-10] MEDS: Enoxaparin 40 mg Syringe SC SCH (09:39)
--- NOTE | 2017-07-10 14:28 | CP.PCM.PN ---
Subjective - Date & Time of Evaluation Date of Evaluation: 07/10/17 Time of Evaluation: 09:00 Objective - Vital Signs/Intake and Output Vital Signs (last 24 hours): Temp Pulse Resp BP Pulse Ox 98.6 F 87 20 124/66 97 07/10/17 07:50 07/10/17 09:38 07/10/17 07:50 07/10/17 09:38 07/10/17 07:50 Intake and Output: 07/10/17 07/10/17 06:59 18:59 Intake Total 900 Balance 900 - Medications Medications: Current Medications Acetaminophen (Tylenol 325mg Tab) 650 mg PO Q6 PRN PRN Reason: Pain, moderate (4-7) Last Admin: 07/02/17 22:51 Dose: 650 mg Albuterol/Ipratropium (Duoneb 3 Mg/0.5 Mg (3 Ml) Ud) 3 ml IH [id number] [facility] Last Admin: 07/10/17 13:36 Dose: 3 ml Albuterol/Ipratropium (Duoneb 3 Mg/0.5 Mg (3 Ml) Ud) 3 ml IH [id number] PRN PRN Reason: Wheezing Aspirin (Ecotrin) 81 mg PO DAILY [facility] Last Admin: 07/10/17 09:38 Dose: 81 mg Atorvastatin Calcium (Lipitor) 20 mg PO DIN [facility] Last Admin: 07/09/17 17:39 Dose: 20 mg Diphenhydramine HCl (Benadryl) 12.5 mg PO HS PRN PRN Reason: Restlessness Last Admin: 07/06/17 21:59 Dose: 12.5 mg Docusate Sodium (Colace) 100 mg PO BID [facility] Last Admin: 07/10/17 09:37 Dose: 100 mg Enoxaparin Sodium (Lovenox) 40 mg SC DAILY [facility] PRN Reason: Protocol Last Admin: 07/10/17 09:39 Dose: 40 mg Furosemide (Lasix) 40 mg PO BID [facility] Last Admin: 07/10/17 09:37 Dose: 40 mg Lactobacillus Acidophilus (Bacid Acidophilus) 1 cap PO BID [facility] Last Admin: 07/10/17 09:38 Dose: 1 cap Losartan Potassium (Cozaar) 50 mg PO BID [facility] Last Admin: 07/09/17 17:38 Dose: 50 mg Metoprolol Tartrate (Lopressor) 37.5 mg PO BID [facility] Last Admin: 07/10/17 09:38 Dose: 37.5 mg Pantoprazole Sodium (Protonix Ec Tab) 40 mg PO 0600 [facility] Last Admin: 07/10/17 05:33 Dose: 40 mg - Labs Labs: 07/07/17 05:30 07/07/17 05:30 PT 11.6 SECONDS (9.4-12.5) 07/02/17 15:15 INR 1.02 (0.93-1.08) 07/02/17 15:15 APTT 18.9 Seconds (25.1-36.5) L 07/02/17 15:15
--- NOTE | 2017-07-10 15:27 | CP.PCM.DIS ---
<Zulema Brandon - Last Filed: 07/12/17 12:25> Provider - Provider Date of Admission: 07/02/17 20:04 Attending physician: Rocio Martinez MD Primary care physician: Brett Esquivel MD Time Spent in preparation of Discharge (in minutes): 35 Diagnosis - Discharge Diagnosis (1) Pneumonia Status: Acute Hospital Course - Lab Results Lab Results: Micro Results 07/06/17 10:00 Urine,Catheterized Urine Culture - Final No Growth (<1,000 CFU/ML) 07/02/17 22:52 Nose MRSA Culture (Admit) - Final MRSA NOT DETECTED Most Recent Lab Values WBC 13.2 10^3/ul (4.5-11.0) H 07/07/17 05:30 RBC 3.94 10^6/uL (3.5-6.1) 07/07/17 05:30 Hgb 11.3 g/dL (12.0-16.0) L 07/07/17 05:30 Hct 36.0 % (36.0-48.0) 07/07/17 05:30 MCV 91.4 fl (80.0-105.0) 07/07/17 05:30 MCH 28.7 pg (25.0-35.0) 07/07/17 05:30 MCHC 31.4 g/dl (31.0-37.0) 07/07/17 05:30 RDW 15.1 % (11.5-14.5) H 07/07/17 05:30 Plt Count 184 10^3/uL (120.0-450.0) 07/07/17 05:30 MPV 10.2 fl (7.0-11.0) 07/07/17 05:30 Gran % 76.4 % (50.0-68.0) H 07/07/17 05:30 Lymph % (Auto) 13.9 % (22.0-35.0) L 07/07/17 05:30 George % (Auto) 7.4 % (1.0-6.0) H 07/07/17 05:30 Eos % (Auto) 1.9 % (1.5-5.0) 07/07/17 05:30 Baso % (Auto) 0.4 % (0.0-3.0) 07/07/17 05:30 Gran # 10.09 (1.4-6.5) H 07/07/17 05:30 Lymph # (Auto) 1.8 (1.2-3.4) 07/07/17 05:30 George # (Auto) 1.0 (0.1-0.6) H 07/07/17 05:30 Eos # (Auto) 0.3 (0.0-0.7) 07/07/17 05:30 Baso # (Auto) 0.05 K/mm3 (0.0-2.0) 07/07/17 05:30 Neutrophils % (Manual) 89 % (50.0-70.0) H 07/02/17 15:15 Band Neutrophils % 3 % (0-2) H 07/02/17 15:15 Lymphocytes % (Manual) 5 % (22.0-35.0) L 07/02/17 15:15 Monocytes % (Manual) 3 % (1.0-6.0) 07/02/17 15:15 ESR 37 mm/hr (0.0-20.0) H 07/04/17 07:00 PT 11.6 SECONDS (9.4-12.5) 07/02/17 15:15 INR 1.02 (0.93-1.08) 07/02/17 15:15 APTT 18.9 Seconds (25.1-36.5) L 07/02/17 15:15 pO2 57 mm/Hg (30-55) H 07/03/17 06:20 VBG pH 7.35 (7.32-7.43) 07/03/17 06:20 VBG pCO2 54.0 (40-60) 07/03/17 06:20 VBG HCO3 29.8 mmol/l (21-28) H 07/03/17 06:20 VBG Total CO2 31.5 mmol.L (22-28) H 07/03/17 06:20 VBG O2 Sat (Calc) 93.2 % (40-65) H 07/03/17 06:20 VBG Base Excess 2.9 mmol/L (0.0-2.0) H 07/03/17 06:20 VBG Potassium 3.5 mmol/L (3.6-5.2) L 07/03/17 06:20 Sodium 144.0 mmol/L (132-148) 07/03/17 06:20 Chloride 109.0 mmol/L (98-107) H 07/03/17 06:20 Glucose 153 mg/dl (65-105) H 07/03/17 06:20 Lactate 2.6 mmol/L (0.7-2.1) H 07/03/17 06:20 FiO2 21.0 % 07/03/17 06:20 Sodium 143 mmol/L (132-148) 07/07/17 05:30 Potassium 4.1 mmol/L (3.6-5.0) 07/07/17 05:30 Chloride 110 mmol/L (98-107) H 07/07/17 05:30 Carbon Dioxide 29 mmol/L (21-33) 07/07/17 05:30 Anion Gap 9 (10-20) L 07/07/17 05:30 BUN 19 mg/dL (7-21) 07/07/17 05:30 Creatinine 0.8 mg/dl (0.7-1.2) 07/07/17 05:30 Est GFR ( Amer) > 60 07/07/17 05:30 Est GFR (Non-Af Amer) > 60 07/07/17 05:30 Random Glucose 132 mg/dL (70-110) H 07/07/17 05:30 Lactic Acid 1.8 mmol/L (0.7-2.1) 07/03/17 08:10 Calcium 8.9 mg/dL (8.4-10.5) 07/07/17 05:30 Total Bilirubin 1.0 mg/dL (0.2-1.3) 07/07/17 05:30 AST 49 U/L (14-36) H 07/07/17 05:30 ALT 34 U/L (7-56) 07/07/17 05:30 Alkaline Phosphatase 150 U/L (38-126) H 07/07/17 05:30 Lactate Dehydrogenase 798 U/L (333-699) H 07/02/17 15:15 Total Creatine Kinase 43 U/L (35-230) 07/02/17 15:15 Troponin I 0.02 ng/mL D 07/03/17 13:50 C-Reactive Protein 136.70 mg/L (0.0-9.9) H 07/04/17 07:00 NT-Pro-B Natriuret Pep 815 pg/mL (0-450) H 07/05/17 23:15 Total Protein 6.2 g/dL (5.8-8.3) 07/07/17 05:30 Albumin 3.0 g/dL (3.0-4.8) 07/07/17 05:30 Globulin 3.2 gm/dL 07/07/17 05:30 Albumin/Globulin Ratio 0.9 (1.1-1.8) L 07/07/17 05:30 Procalcitonin 0.52 NG/ML (0.19-0.49) H 07/09/17 06:00 Free T4 1.04 ng/dL (0.78-2.19) 07/04/17 05:20 TSH 3rd Generation 1.09 mIU/mL (0.46-4.68) 07/03/17 13:50 Venous Blood Potassium 3.5 mmol/L (3.6-5.2) L 07/03/17 06:20 Urine Color Yellow (YELLOW) 07/06/17 10:00 Urine Appearance Clear (CLEAR) 07/06/17 10:00 Urine pH 5.5 (4.7-8.0) 07/06/17 10:00 Ur Specific [place] >= 1.030 (1.005-1.035) 07/06/17 10:00 Urine Protein Trace mg/dL (<30 mg/dL) H 07/06/17 10:00 Urine Glucose (UA) Negative mg/dL (NEGATIVE) 07/06/17 10:00 Urine Ketones Negative mg/dL (NEGATIVE) 07/06/17 10:00 Urine Blood Negative (NEGATIVE) 07/06/17 10:00 Urine Nitrate Negative (NEGATIVE) 07/06/17 10:00 Urine Bilirubin Negative (NEGATIVE) 07/06/17 10:00 Urine Urobilinogen 0.2 E.U./dL (<1 E.U./dL) 07/06/17 10:00 Ur Leukocyte Esterase Negative Sayra/uL (NEGATIVE) 07/06/17 10:00 Urine RBC 0 - 2 /hpf (0-2) 07/06/17 10:00 Urine WBC 0 - 2 /hpf (0-6) 07/06/17 10:00 Ur Epithelial Cells 0 - 2 /hpf (0-5) 07/06/17 10:00 Urine Bacteria Few (NEG) 07/06/17 10:00 Influenza Typ A,B (EIA) Pos for influenza a (NEGATIVE) H 07/02/17 18:54 Ur L.pneumophila Ag Negative (NEGATIVE) 07/06/17 10:00 - Hospital Course Hospital Course: 76 yo female with PMH of HTN, CHF presents to ED after fall with leg and back pain found to have sepsis secondary to influenza A and right lower lobe CAP. During hospital course she completed course of tamiflu and antibiotics. Patient had episode of hypotension on admission which resolved with IVF. ID was consulted. Patient had history of CHF, Echo showed LVEF of 60-65%. Home cardiac medication were continued. Patient was also found to have multinodular goiter on CT scan. Per daughter lesion is known and patient had biopsy with machine operator assistant. Pancreatic masses and adrenal mass were also found on CT scan, discussed with daughter and family elects for outpatient follow up outpatient. Physical therapy saw patient and recommended [facility]. Patient is doing well, no complaint. She is to be discharged to [facility] for further PT. Discharge plan was discussed with patient and family, they are in agreement. Discharge Exam - Head Exam Head Exam: ATRAUMATIC, NORMAL INSPECTION - Eye Exam Eye Exam: EOMI, Normal appearance - Respiratory Exam Respiratory Exam: Clear to PA & Lateral, NORMAL BREATHING PATTERN, UNREMARKABLE. absent: Rales, Rhonchi, Wheezes, Respiratory Distress - Cardiovascular Exam Cardiovascular Exam: REGULAR RHYTHM, +S1, +S2. absent: Tachycardia, Diastolic murmur, Systolic Murmur - GI/Abdominal Exam GI & Abdominal Exam: Normal Bowel Sounds, Soft, Unremarkable. absent: Distended , Firm, Tenderness - Neurological Exam Neurological exam: Alert, Oriented x3 - Skin Skin Exam: Dry, Intact, Normal Color, Warm Discharge Plan - Discharge Medications Prescriptions: Amoxicillin/Clavulanate [Augmentin 875 MG-125 MG Tab] 1 tab PO Q12 #10 tab Lactobacillus Acidophilus [Bacid Acidophilus] 1 cap PO BID #10 cap Oseltamivir [Tamiflu Cap] 75 mg PO BID #14 cap - Follow Up Plan Condition: CRITICAL Disposition: REHAB FACILITY/REHAB UNIT Instructions: Flu, Sepsis in Adults Additional Instructions: - Continue to take Augmentin twice daily for 5 more days - Continue to take Tamiflu twice daily for 7 more days - Follow up with Dr. Brett Esquivel, primary doctor (PCP) in 1 week - Follow up with patient's outpatient machine operator assistant on the result of thyroid biopsy. Recommend radionuclide scan to assess hot or cold nodule. - Per daughter , the patient will follow up adrenal and Pancreatitic CT scan finding with her PCP and endocrinology as out patient. Referrals: Brett Esquivel MD [Primary Care Provider] - <Rocio Martinez - Last Filed: 07/12/17 14:11> Provider - Provider Date of Admission: 07/02/17 20:04 Attending physician: Rocio Martinez MD Primary care physician: Brett Esquivel MD Hospital Course - Lab Results Lab Results: Micro Results 07/06/17 10:00 Urine,Catheterized Urine Culture - Final No Growth (<1,000 CFU/ML) 07/02/17 22:52 Nose MRSA Culture (Admit) - Final MRSA NOT DETECTED Most Recent Lab Values WBC 13.2 10^3/ul (4.5-11.0) H 07/07/17 05:30 RBC 3.94 10^6/uL (3.5-6.1) 07/07/17 05:30 Hgb 11.3 g/dL (12.0-16.0) L 07/07/17 05:30 Hct 36.0 % (36.0-48.0) 07/07/17 05:30 MCV 91.4 fl (80.0-105.0) 07/07/17 05:30 MCH 28.7 pg (25.0-35.0) 07/07/17 05:30 MCHC 31.4 g/dl (31.0-37.0) 07/07/17 05:30 RDW 15.1 % (11.5-14.5) H 07/07/17 05:30 Plt Count 184 10^3/uL (120.0-450.0) 07/07/17 05:30 MPV 10.2 fl (7.0-11.0) 07/07/17 05:30 Gran % 76.4 % (50.0-68.0) H 07/07/17 05:30 Lymph % (Auto) 13.9 % (22.0-35.0) L 07/07/17 05:30 George % (Auto) 7.4 % (1.0-6.0) H 07/07/17 05:30 Eos % (Auto) 1.9 % (1.5-5.0) 07/07/17 05:30 Baso % (Auto) 0.4 % (0.0-3.0) 07/07/17 05:30 Gran # 10.09 (1.4-6.5) H 07/07/17 05:30 Lymph # (Auto) 1.8 (1.2-3.4) 07/07/17 05:30 George # (Auto) 1.0 (0.1-0.6) H 07/07/17 05:30 Eos # (Auto) 0.3 (0.0-0.7) 07/07/17 05:30 Baso # (Auto) 0.05 K/mm3 (0.0-2.0) 07/07/17 05:30 Neutrophils % (Manual) 89 % (50.0-70.0) H 07/02/17 15:15 Band Neutrophils % 3 % (0-2) H 07/02/17 15:15 Lymphocytes % (Manual) 5 % (22.0-35.0) L 07/02/17 15:15 Monocytes % (Manual) 3 % (1.0-6.0) 07/02/17 15:15 ESR 37 mm/hr (0.0-20.0) H 07/04/17 07:00 PT 11.6 SECONDS (9.4-12.5) 07/02/17 15:15 INR 1.02 (0.93-1.08) 07/02/17 15:15 APTT 18.9 Seconds (25.1-36.5) L 07/02/17 15:15 pO2 57 mm/Hg (30-55) H 07/03/17 06:20 VBG pH 7.35 (7.32-7.43) 07/03/17 06:20 VBG pCO2 54.0 (40-60) 07/03/17 06:20 VBG HCO3 29.8 mmol/l (21-28) H 07/03/17 06:20 VBG Total CO2 31.5 mmol.L (22-28) H 07/03/17 06:20 VBG O2 Sat (Calc) 93.2 % (40-65) H 07/03/17 06:20 VBG Base Excess 2.9 mmol/L (0.0-2.0) H 07/03/17 06:20 VBG Potassium 3.5 mmol/L (3.6-5.2) L 07/03/17 06:20 Sodium 144.0 mmol/L (132-148) 07/03/17 06:20 Chloride 109.0 mmol/L (98-107) H 07/03/17 06:20 Glucose 153 mg/dl (65-105) H 07/03/17 06:20 Lactate 2.6 mmol/L (0.7-2.1) H 07/03/17 06:20 FiO2 21.0 % 07/03/17 06:20 Sodium 143 mmol/L (132-148) 07/07/17 05:30 Potassium 4.1 mmol/L (3.6-5.0) 07/07/17 05:30 Chloride 110 mmol/L (98-107) H 07/07/17 05:30 Carbon Dioxide 29 mmol/L (21-33) 07/07/17 05:30 Anion Gap 9 (10-20) L 07/07/17 05:30 BUN 19 mg/dL (7-21) 07/07/17 05:30 Creatinine 0.8 mg/dl (0.7-1.2) 07/07/17 05:30 Est GFR ( Amer) > 60 07/07/17 05:30 Est GFR (Non-Af Amer) > 60 07/07/17 05:30 Random Glucose 132 mg/dL (70-110) H 07/07/17 05:30 Lactic Acid 1.8 mmol/L (0.7-2.1) 07/03/17 08:10 Calcium 8.9 mg/dL (8.4-10.5) 07/07/17 05:30 Total Bilirubin 1.0 mg/dL (0.2-1.3) 07/07/17 05:30 AST 49 U/L (14-36) H 07/07/17 05:30 ALT 34 U/L (7-56) 07/07/17 05:30 Alkaline Phosphatase 150 U/L (38-126) H 07/07/17 05:30 Lactate Dehydrogenase 798 U/L (333-699) H 07/02/17 15:15 Total Creatine Kinase 43 U/L (35-230) 07/02/17 15:15 Troponin I 0.02 ng/mL D 07/03/17 13:50 C-Reactive Protein 136.70 mg/L (0.0-9.9) H 07/04/17 07:00 NT-Pro-B Natriuret Pep 815 pg/mL (0-450) H 07/05/17 23:15 Total Protein 6.2 g/dL (5.8-8.3) 07/07/17 05:30 Albumin 3.0 g/dL (3.0-4.8) 07/07/17 05:30 Globulin 3.2 gm/dL 07/07/17 05:30 Albumin/Globulin Ratio 0.9 (1.1-1.8) L 07/07/17 05:30 Procalcitonin 0.52 NG/ML (0.19-0.49) H 07/09/17 06:00 Free T4 1.04 ng/dL (0.78-2.19) 07/04/17 05:20 TSH 3rd Generation 1.09 mIU/mL (0.46-4.68) 07/03/17 13:50 Venous Blood Potassium 3.5 mmol/L (3.6-5.2) L 07/03/17 06:20 Urine Color Yellow (YELLOW) 07/06/17 10:00 Urine Appearance Clear (CLEAR) 07/06/17 10:00 Urine pH 5.5 (4.7-8.0) 07/06/17 10:00 Ur Specific [place] >= 1.030 (1.005-1.035) 07/06/17 10:00 Urine Protein Trace mg/dL (<30 mg/dL) H 07/06/17 10:00 Urine Glucose (UA) Negative mg/dL (NEGATIVE) 07/06/17 10:00 Urine Ketones Negative mg/dL (NEGATIVE) 07/06/17 10:00 Urine Blood Negative (NEGATIVE) 07/06/17 10:00 Urine Nitrate Negative (NEGATIVE) 07/06/17 10:00 Urine Bilirubin Negative (NEGATIVE) 07/06/17 10:00 Urine Urobilinogen 0.2 E.U./dL (<1 E.U./dL) 07/06/17 10:00 Ur Leukocyte Esterase Negative [place]/uL (NEGATIVE) 07/06/17 10:00 Urine RBC 0 - 2 /hpf (0-2) 07/06/17 10:00 Urine WBC 0 - 2 /hpf (0-6) 07/06/17 10:00 Ur Epithelial Cells 0 - 2 /hpf (0-5) 07/06/17 10:00 Urine Bacteria Few (NEG) 07/06/17 10:00 Influenza Typ A,B (EIA) Pos for influenza a (NEGATIVE) H 07/02/17 18:54 Ur L.pneumophila Ag Negative (NEGATIVE) 07/06/17 10:00 Attending/Attestation - Attestation I have personally seen and examined this patient.: Yes I have fully participated in the care of the patient.: Yes I have reviewed all pertinent clinical information, including history, physical exam and plan: Yes Notes (Text): 76 year old female with past medical history of CHF and hypertension who presented s/p fall. Found to have sepsis with pneumonia and influenza. She was seen by ID and started on antibiotics and tamiflu. Her symptoms improved and her procalcitonin trended down. Imaging also showed multinodular goiter, pancreatic mass and adrenal mass for which patient will follow up as outpatient workup. She has been accepted to [facility]. Follow up with pmd for additional workup as above. Rocio Martinez MD Hospitalist.
[2017-07-10 17:27] VITALS: BP 150/53; PULSE 61; TEMP 97.7; O2SAT 96
--- NOTE | 2017-07-11 01:51 | PN ---
DATE: 07/10/2017 SUBJECTIVE: Patient is in bed, in no acute distress. PHYSICAL EXAMINATION: VITAL SIGNS: Temperature of 98, blood pressure of 120/60, respiratory rate 20, heart rate of 87. HEENT: Unremarkable. NECK: Supple. LUNGS: Have decreased breath sounds. HEART: Normal S1 and S2. ABDOMEN: Soft. LABORATORY EXAMINATION: White count of 13,000. ASSESSMENT AND PLAN: A 76-year-old female who was seen earlier this morning and was admitted with severe sepsis with fluid responsive hypotension, acute renal failure, systemic viral illness, and we will have her completed 5 days of Tamiflu and currently off of antibiotics. Patient will be discharged today. Juan Simpson MD
== END 2017-07-10 18:17 | DRG 871 ==
LOC: ED 14:04 → MERGE 20:04 → ERH 20:04 → CCU 22:26 → 3RNO 07-04 16:16
PROVIDERS: ADMIT Internal Medicine; ATTEND Internal Medicine
PROC: 3E0F7GC Introduction of Other Therapeutic Substance into Respiratory Tract, Via Natural or Artificial Opening (ICD-10-PCS; principal; 2017-07-05)
DX: A41.89 Other specified sepsis (principal); J10.00 Influenza due to other identified influenza virus with unspecified type of pneumonia; N17.9 Acute kidney failure, unspecified; I50.32 Chronic diastolic (congestive) heart failure; I11.0 Hypertensive heart disease with heart failure; E04.2 Nontoxic multinodular goiter; Z68.37 Body mass index [BMI] 37.0-37.9, adult; E66.9 Obesity, unspecified; R65.20 Severe sepsis without septic shock; F03.90 Unspecified dementia, unspecified severity, without behavioral disturbance, psychotic disturbance, mood disturbance, and anxiety; K86.9 Disease of pancreas, unspecified; E27.9 Disorder of adrenal gland, unspecified; Z91.81 History of falling